=== PATIENT | female | born 1950 | race Caucasian/White ===

== ENCOUNTER → 2017-12-09 | Outpatient (CLI) | payer MEDICARE, OTHER ==
--- NOTE | 2017-12-09 16:10 | RADIOLOGY REPORT (SQ) ---
EXAM DESCRIPTION: U/S THYROID/SFT TISS HD NECK COMPLETED DATE/TIME: 12/09/2017 3:41 pm REASON FOR STUDY: R THYROID NODULE E04.1 NONTOXIC SINGLE THYROID NODULE COMPARISON: None. TECHNIQUE: Dynamic and static carcamo-scale images acquired of the thyroid gland. Selected additional c olor/power Doppler images recorded. All images stored to PACS. LIMITATIONS: None. FINDINGS: RIGHT LOBE: Normal size, 3.5 x 2.5 x 2 cm. Homogeneous echotexture. There is a complex m ass right lower pole thyroid with increased color flow, 2.7 x 2.3 x 2 cm in size. Consider biopsy. LEFT LOBE: Normal size, 3.7 x 1.6 x 1.3 cm. Homogeneous echotexture. Small solid nodule 6 x 3 mm. ISTHMUS: Normal size. Homogeneous echotexture. No cystic or solid masses. OTHER: No other significant finding. IMPRESSION: Complex mass right lower pole thyroid. Ultrasound guided biopsy recommended TECHNICAL DOCUMENTATION: JOB ID: [id number] [employer]- All Rights Reserved Reading location - IP/workstation name: [email or web address]
== END ==
LOC: RAD 14:36
PROVIDERS: ATTEND Otolaryngology
DX: E04.1 Nontoxic single thyroid nodule (principal)
CPT/HCPCS: 76536

== ENCOUNTER 2018-03-03 07:58 | Emergency (ER) | payer MEDICARE, OTHER ==
[2018-03-03] MEDS ORDERED: MORPHINE SULFATE 10 MG/ML INJ IV ONE (08:55)
[2018-03-03] MEDS ORDERED: METOCLOPRAMIDE HCL INJ/PF 10 MG/2 ML SDV IV ONE (08:55)
--- NOTE | 2018-03-03 08:58 | ER Document Report ---
ED General - General Chief Complaint: Upper Abdominal Pain Stated Complaint: STOMACH PAIN Time Seen by Provider: 03/03/18 08:35 Mode of Arrival: Ambulatory Information source: Patient, [facility] Records Notes: 68-year-old female with fibromyalgia, osteoarthritis devious history of pancreatitis presents with complaint of right upper quadrant abdominal pain that started 6 days prior to arrival. Patient describes the pain as intermittent, stabbing with radiation to her back. She states does state that is worse with food. Patient had pancreatitis approximately 3 months ago and was told it was secondary to long-term Diflucan use. She denies any fever, chills, chest pain. She admits to nausea without vomiting, dysuria, loose stool. TRAVEL OUTSIDE OF THE [place] IN LAST 30 DAYS: No - HPI Onset: Last week Quality of pain: Achy Severity: Mild Associated symptoms: Nausea. denies: Chest pain, Vomiting, Shortness of breath Exacerbated by: Movement Relieved by: Denies Similar symptoms previously: Yes Recently seen / treated by doctor: No - Related Data Allergies/Adverse Reactions: aspirin [Aspirin] Adverse Reaction (Severe, Verified 03/03/18 07:58) ABDOMINAL PAIN codeine [Codeine] Adverse Reaction (Severe, Verified 03/03/18 07:58) ABDOMINAL PAIN sulfamethoxazole [From Septra] Adverse Reaction (Severe, Verified 03/03/18 07:58 ) ABDOMINAL PAIN trimethoprim [From Septra] Adverse Reaction (Severe, Verified 03/03/18 07:58) ABDOMINAL PAIN Past Medical History - General Information source: Patient, [facility] Records - Social History Smoking Status: Never Smoker Frequency of alcohol use: None Drug Abuse: None Lives with: Spouse/Significant other Family History: Reviewed & Not Pertinent Patient has suicidal ideation: No Patient has homicidal ideation: No - Past Medical History Cardiac Medical History: Denies: Hx Coronary Artery Disease, Hx Heart Attack, Hx Hypertension Pulmonary Medical History: Denies: Hx Asthma, Hx Bronchitis, Hx COPD, Hx Pneumonia Neurological Medical History: Denies: Hx Cerebrovascular Accident, Hx Seizures Renal/ Medical History: Denies: Hx Peritoneal Dialysis Musculoskeltal Medical History: Denies Hx Arthritis Past Surgical History: Reports: Hx Hysterectomy - Immunizations Hx Diphtheria, Pertussis, Tetanus Vaccination: Yes Review of Systems - Review of Systems Notes: REVIEW OF SYSTEMS: CONSTITUTIONAL : Denies fever, chills, or sweats. Denies recent illness. Denies weight loss, recent hospitalizations. EENT: Denies visual changes, eye pain. Denies nasal or sinus congestion or discharge. Denies sore throat, oral lesions, difficulty swallowing. CARDIOVASCULAR: Denies chest pain. Denies palpitations. Denies lower extremity edema. RESPIRATORY: Denies cough, cold, or chest congestion. Denies shortness of breath, wheezing. GASTROINTESTINAL: Denies abdominal distention. Denies vomiting, Denies blood in vomitus, stools, or per rectum. Denies black, tarry stools. Denies constipation. GENITOURINARY: Denies difficulty urinating, painful urination, frequency, blood in urine, or vaginal discharge. MUSCULOSKELETAL: Denies back or neck pain or stiffness. Denies joint pain or swelling. SKIN: Denies rash, lesions or sores. HEMATOLOGIC : Denies easy bruising or bleeding. LYMPHATIC: Denies swollen glands. NEUROLOGICAL: Denies confusion or altered mental status. Denies passing out or loss of consciousness. Denies dizziness or lightheadedness. Denies headache. Denies weakness or paralysis. Denies problems difficulty with ambulation, slurred speech. Denies sensory loss, numbness, or tingling. Denies seizures. PSYCHIATRIC: Denies anxiety or stress. Denies depression, suicidal ideation, or homicidal ideation. Denies visual or auditory hallucinations. Physical Exam - Vital signs Vitals: Temp Pulse Resp BP Pulse Ox 98.8 F 82 20 143/79 H 99 03/03/18 08:01 03/03/18 08:01 03/03/18 08:01 03/03/18 08:01 03/03/18 08:01 - Notes Notes: PHYSICAL EXAMINATION: GENERAL: Well-appearing, well-nourished and in no acute distress. HEAD: Atraumatic, normocephalic. EYES: Pupils equal round and reactive to light, extraocular movements intact, conjunctiva are normal. ENT: Nares patent, oropharynx clear without exudates. Moist mucous membranes. NECK: Normal range of motion, supple without lymphadenopathy LUNGS: Breath sounds clear to auscultation bilaterally and equal. No wheezes rales or rhonchi. HEART: Regular rate and rhythm without murmurs ABDOMEN: Soft, tender to palpation in the right upper quadrant. Nondistended abdomen. No guarding, no rebound. No masses appreciated. Female : deferred Musculoskeletal: Normal range of motion, no pitting or edema. No cyanosis. NEUROLOGICAL: Cranial nerves grossly intact. Normal speech, normal gait. Normal sensory, motor exams PSYCH: Normal mood, normal affect. SKIN: Warm, Dry, normal turgor, no rashes or lesions noted. Course - Re-evaluation Re-evalutation: 68-year-old female with fibromyalgia, osteoarthritis devious history of pancreatitis presents with complaint of right upper quadrant abdominal pain that started 6 days prior to arrival. Patient describes the pain as intermittent, stabbing with radiation to her back. She states does state that is worse with food. Patient had pancreatitis approximately 3 months ago and was told it was secondary to long-term Diflucan use. She denies any fever, chills, chest pain. She admits to nausea without vomiting, dysuria, loose stool. Patient was seen by myself upon arrival. Vital signs were reviewed. Patient is afebrile, normotensive and not hypoxic. Patient does not appear toxic or dehydrated. They are in no acute distress. Previous medical records and nursing notes reviewed. Significant findings include a urinalysis consistent with urinary tract infection. 03/03/18 11:49 Reevaluation patient reports that her nausea and pain have resolved. She is tolerating fluids without difficulty. 03/03/18 16:04 03/03/18 16:04 Patient was provided Macrobid and Reglan in the department and will be prescribed the same medication for home. Patient provided the opportunity to ask questions, and express concerns. Discharge instructions discussed. Patient is agreeable with discharge home. Return indications explained and discussed with the patient who displays understanding. Patient encouraged to return to the emergency department immediately with any concerns. - Vital Signs Vital signs: Temp Pulse Resp BP Pulse Ox 98.1 F 57 L 14 105/66 98 03/03/18 12:04 03/03/18 12:04 03/03/18 12:04 03/03/18 12:04 03/03/18 12:04 - Laboratory Result Diagrams: 03/03/18 09:23 03/03/18 09:23 Laboratory results interpreted by me: 03/03/18 03/03/18 03/03/18 09:23 09:23 09:53 Seg Neutrophils % 80.7 H Sodium 135.0 L Chloride 96 L BUN 4 L Glucose 145 H Total Protein 8.4 H Ur Leukocyte Esterase MODERATE H Discharge - Discharge Clinical Impression: Abdominal pain Qualifiers: Abdominal location: right upper quadrant Qualified Code(s): R10.11 - Right upper quadrant pain UTI (urinary tract infection) Qualifiers: Urinary tract infection type: acute cystitis Hematuria presence: without hematuria Qualified Code(s): N30.00 - Acute cystitis without hematuria Condition: Good Disposition: HOME, SELF-CARE Instructions: Urinary Tract Infection ([facility]) Prescriptions: Metoclopramide HCl [Reglan 10 mg Tablet] 1 tab PO Q8H PRN #25 tablet PRN Reason: Nitrofurantoin Monohyd/M-Cryst [Macrobid 100 mg Capsule] 1 tab PO BID #14 capsule Referrals: ROBIN LABOY MD [Primary Care Provider] - Follow up in 1 week
[2018-03-03 09:32] LABS: ABSOLUTE LYMPHOCYTES (AUTO) 0.9 10^3/uL (0.5-4.7); ABSOLUTE MONOCYTES (AUTO) 0.3 10^3/uL (0.1-1.4); ABSOLUTE NEUT (AUTO) 4.9 10^3/uL (1.7-8.2); BASOPHILS % (AUTO) 0.3 % (0-2); EOSINOPHILS % (AUTO) 0.3 % (0-6); HEMATOCRIT 40.5 % (36.0-47.0); LYMPHOCYTES % (AUTO) 14.2 % (13-45); MEAN CORPUSCULAR HEMOGLOBIN 32.3 pg (27.0-33.4); MEAN CORPUSCULAR HGB CONC 34.4 g/dL (32.0-36.0); MEAN CORPUSCULAR VOLUME 94 fl (80-97); MONOCYTES % (AUTO) 4.5 % (3-13); PLATELET COUNT 358 10^3/uL (150-450); RED BLOOD COUNT 4.32 10^6/uL (3.72-5.28); RED CELL DISTRIBUTION WIDTH 13.1 % (11.5-14.0); SEGMENTED NEUTROPHILS % (AUTO) 80.7 % (42-78); TOTAL CELLS COUNTED % (AUTO) 100 %
[2018-03-03 09:53] LABS: ALANINE AMINOTRANSFERASE 21 U/L (9-52); ALBUMIN 4.8 g/dL (3.5-5.0); ALKALINE PHOSPHATASE 89 U/L (38-126); ANION GAP 13 (5-19); ASPARTATE AMINO TRANSFERASE 20 U/L (14-36); BILIRUBIN,DIRECT 0.4 mg/dL (0.0-0.4); BILIRUBIN,TOTAL 0.5 mg/dL (0.2-1.3); BLOOD UREA NITROGEN 4 mg/dL (7-20); CALCIUM 9.9 mg/dL (8.4-10.2); CARBON DIOXIDE 26 mmol/L (22-30); CHLORIDE 96 mmol/L (98-107); GLUCOSE 145 mg/dL (75-110); LIPASE 132.5 U/L (23-300); POTASSIUM 4.5 mmol/L (3.6-5.0); TOTAL PROTEIN 8.4 g/dL (6.3-8.2)
[2018-03-03 10:06] LABS: APPEARANCE,URINE SLIGHTLY-CLOUDY; BILIRUBIN,URINE NEGATIVE (NEGATIVE); COLOR,URINE YELLOW; GLUCOSE, URINE NEGATIVE (NEGATIVE); KETONES,URINE NEGATIVE (NEGATIVE); LEUKOCYTE ESTERASE,URINE MODERATE (NEGATIVE); NITRITE,URINE NEGATIVE (NEGATIVE); PROTEIN,URINE NEGATIVE (NEGATIVE); URINE SPECIFIC GRAVITY 1.011; UROBILINOGEN,URINE NEGATIVE mg/dL (<2.0)
[2018-03-03] MEDS ORDERED: NITROFURANTOIN MONOHYD/M-CRYST 100 MG CAPSULE PO ONE (10:34)
[2018-03-03 12:21] VITALS: BP 105/66
== END 2018-03-03 12:19 | disposition home or self-care (01) ==
LOC: ER 07:58
DX: N30.00 Acute cystitis without hematuria (principal); R10.11 Right upper quadrant pain; M79.7 Fibromyalgia; M19.90 Unspecified osteoarthritis, unspecified site; Z88.6 Allergy status to analgesic agent; Z88.8 Allergy status to other drugs, medicaments and biological substances; Z90.710 Acquired absence of both cervix and uterus
CPT/HCPCS: 99284; 96374; 96375; 36415; 87086; 83690; 85025; 80053; 81001; J2765; J2270; A9270; J8499

== ENCOUNTER → 2018-06-13 | Outpatient (CLI) | payer MEDICARE, OTHER ==
--- NOTE | 2018-06-13 13:56 | RADIOLOGY REPORT (SQ) ---
EXAM DESCRIPTION: U/S RETROPERITON (RENAL/AORTA) COMPLETED DATE/TIME: 06/13/2018 11:35 am REASON FOR STUDY: UTI (N39.0) N39.0 URINARY TRACT INFECTION, SITE NOT SPECIFIED COMPARISON: None. TECHNIQUE: Dynamic and static grayscale images acquired of the kidneys and bladder and recorded on P ACS. Additional selected color Doppler and spectral images recorded. LIMITATIONS: None. FINDINGS: RIGHT KIDNEY: Normal size. Normal echogenicity. No solid or suspicious masses. No hydronep hrosis. No calcifications. LEFT KIDNEY: Normal size. Normal echogenicity. No solid or suspicious masses. No hydronephrosis. No calcifications. BLADDER: The bladder is incompletely distended. OTHER FINDINGS: No other significant finding. IMPRESSION: NORMAL RENAL AND BLADDER ULTRASOUND. TECHNICAL DOCUMENTATION: JOB ID: [id number] [employer]- All Rights Reserved Reading location - IP/workstation name: [email or web address]
== END ==
LOC: RAD 11:14
PROVIDERS: ATTEND Urology
DX: N39.0 Urinary tract infection, site not specified (principal)
CPT/HCPCS: 76770

== ENCOUNTER 2018-09-10 02:56 | Emergency (ER) | payer MEDICARE, OTHER ==
[2018-09-10 03:10] VITALS: BP 142/79
[2018-09-10] MEDS ORDERED: ONDANSETRON HCL INJ/PF 4 MG/2 ML SDV IV ONE (03:58)
[2018-09-10] MEDS ORDERED: NORMAL SALINE 1000 ML 1,000 ML IV ONE (03:58)
[2018-09-10] MEDS ORDERED: MORPHINE SULFATE 10 MG/ML INJ IV ONE (03:58)
--- NOTE | 2018-09-10 04:04 | ER Document Report ---
ED GI/ - General Chief Complaint: Rectal Bleeding Stated Complaint: VOMITING Time Seen by Provider: 09/10/18 03:45 Notes: Patient is a 68-year-old female who comes emergency part for chief complaint of abdominal pain, vomiting, bloody stools. She states that at 5 AM she woke up, started having sharp pain in her lateral abdomen, vomited several times, had several episodes of loose stools, she noticed bright red blood in the stool mixed in. She states she has had abdominal pain in the lower abdomen persistently all day. She denies fever or chills. She states that whenever she has tried to eat or drink the pain has become much worse. Past medical history includes hiatal hernia, on Protonix, hysterectomy, hypertension, hyperlipidemia. She denies smoking or alcohol. TRAVEL OUTSIDE OF THE [place] IN LAST 30 DAYS: No - Related Data Allergies/Adverse Reactions: aspirin [Aspirin] Adverse Reaction (Severe, Verified 03/03/18 07:58) ABDOMINAL PAIN codeine [Codeine] Adverse Reaction (Severe, Verified 03/03/18 07:58) ABDOMINAL PAIN sulfamethoxazole [From Septra] Adverse Reaction (Severe, Verified 03/03/18 07:58) ABDOMINAL PAIN trimethoprim [From Septra] Adverse Reaction (Severe, Verified 03/03/18 07:58) ABDOMINAL PAIN Past Medical History - General Information source: Patient - Social History Smoking Status: Never Smoker Frequency of alcohol use: None Drug Abuse: None Lives with: Family Family History: Reviewed & Not Pertinent - Past Medical History Cardiac Medical History: Reports: Hx Hypercholesterolemia, Hx Hypertension Denies: Hx Coronary Artery Disease, Hx Heart Attack Pulmonary Medical History: Denies: Hx Asthma, Hx Bronchitis, Hx COPD, Hx Pneumonia Neurological Medical History: Denies: Hx Cerebrovascular Accident, Hx Seizures Renal/ Medical History: Denies: Hx Peritoneal Dialysis GI Medical History: Reports: Hx Gastroesophageal Reflux Disease Musculoskeletal Medical History: Denies Hx Arthritis Past Surgical History: Reports: Hx Hysterectomy - Immunizations Hx Diphtheria, Pertussis, Tetanus Vaccination: Yes Review of Systems - Review of Systems Constitutional: No symptoms reported EENT: No symptoms reported Cardiovascular: No symptoms reported Respiratory: No symptoms reported Gastrointestinal: See HPI Genitourinary: No symptoms reported Female Genitourinary: No symptoms reported Musculoskeletal: No symptoms reported Skin: No symptoms reported Hematologic/Lymphatic: No symptoms reported Neurological/Psychological: No symptoms reported Physical Exam - Vital signs Vitals: Temp Pulse Resp BP Pulse Ox 98.8 F 91 16 142/79 H 99 09/10/18 02:57 09/10/18 02:57 09/10/18 02:57 09/10/18 02:57 09/10/18 02:57 - Notes Notes: GENERAL: Alert, interacts well. No acute distress. HEAD: Normocephalic, atraumatic. EYES: Pupils equal, round, and reactive to light. Extraocular movements intact. ENT: Oral mucosa moist, tongue midline. Oropharynx unremarkable. Airway patent. Nares patent, no nasal septal hematoma, TM's intact. NECK: Full range of motion. Supple. Trachea midline. LUNGS: Clear to auscultation bilaterally, no wheezes, rales, or rhonchi. No respiratory distress. HEART: Regular rate and rhythm. No murmur ABDOMEN: Tenderness in the left mid to lower quadrant. Patient is not guarding. Right abdomen unremarkable. Upper abdomen unremarkable. No rigidity or distention noted. GENITOURINARY: Deferred RECTAL: Questionable minimal bright red blood, no black stool, no heavy bleeding, no hemorrhoid, no other concerning findings noted. Jaclyn SHIPMAN present during exam. EXTREMITIES: Moves all 4 extremities spontaneously. No edema, normal radial and dorsalis pedis pulses bilaterally. No cyanosis. BACK: no cervical, thoracic, lumbar midline tenderness. No saddle anesthesia, normal distal neurovascular exam. NEUROLOGICAL: Alert and oriented x3. Normal speech. [cranial nerves II through XII grossly intact]. PSYCH: Normal affect, normal mood. SKIN: Warm, dry, normal turgor. No rashes or lesions noted. Course - Re-evaluation Re-evalutation: CBC unremarkable. Chemistry unremarkable. Urinalysis unremarkable. Lactic acid is not elevated. Patient has left lower quadrant pain on evaluation, symptoms very suggestive of colitis versus diverticulitis. Low suspicion of isc hemic colitis based on her appearance, workup, and unremarkable lactic acid. CAT scan was performed, this does show colitis over the left descending colon. This is consistent with patient's presentation. Also shows a possible right ureteral stone, however patient has no hematuria, no right-sided abdominal pain, no right flank pain. I did discuss the possibility of a stone with patient. She has never had them before. Since this is questionable I feel that this is unlikely. I discussed results and plan with patient in detail. Because she has no leukocytosis, fever, unstable vital signs, and her examination is still somewhat benign, will try outpatient therapy first. Patient will be discharged on Augmentin because she has had bad effects of Flagyl in the past including developing pancreatitis once and it was thought to be secondary to this, she requests a different method and after discussion Augmentin was agreed upon. She states she will follow-up very closely with her primary care provider. She was provided with symptom relief. I discussed strict return precautions. Patient and state understanding and agreement. Stable at time of discharge. - Vital Signs Vital signs: Temp Pulse Resp BP Pulse Ox 98.8 F 91 16 142/79 H 99 09/10/18 02:57 09/10/18 02:57 09/10/18 02:57 09/10/18 02:57 09/10/18 02:57 - Laboratory Result Diagrams: 09/10/18 04:09 09/10/18 04:09 Laboratory results interpreted by me: 09/10/18 04:09 Glucose 127 H Discharge - Discharge Clinical Impression: LLQ abdominal pain, Nausea vomiting and diarrhea, Colitis Condition: Stable Disposition: HOME, SELF-CARE Additional Instructions: Your workup indicates colitis. We are treating this with the antibiotic Augmentin. Take as directed. I recommend a clear fluid diet for at least the first 24 hours. Progress to bland diet. Take the pain and nausea medication as prescribed if needed. Follow-up with your provider within the next 3 days. Return if you worsen in any way including fever/chills, severe worsening pain, frequent bloody stools, swelling of the abdomen, uncontrolled vomiting, or any other concerning or worsening symptoms. Prescriptions: Amox Tr/Potassium Clavulanate [Augmentin 875-125 Tablet] 1 tab PO TID 7 Days #21 tablet Morphine Sulfate [Morphine Ir 15 Mg Tablet] 15 mg PO TID PRN #15 tablet PRN Reason: Ondansetron [Zofran Odt 4 mg Tablet] 1 - 2 tab PO Q4H PRN #15 tab.rapdis PRN Reason: For Nausea/Vomiting Referrals: REBECCA RAM [Primary Care Provider] - Follow up as needed
[2018-09-10 04:31] LABS: ABSOLUTE LYMPHOCYTES (AUTO) 1.4 10^3/uL (0.5-4.7); ABSOLUTE MONOCYTES (AUTO) 0.7 10^3/uL (0.1-1.4); ABSOLUTE NEUT (AUTO) 6.7 10^3/uL (1.7-8.2); BASOPHILS % (AUTO) 0.4 % (0-2); EOSINOPHILS % (AUTO) 0.2 % (0-6); HEMATOCRIT 38.1 % (36.0-47.0); HEMOGLOBIN 13.1 g/dL (12.0-15.5); LYMPHOCYTES % (AUTO) 15.5 % (13-45); MEAN CORPUSCULAR HEMOGLOBIN 32.3 pg (27.0-33.4); MEAN CORPUSCULAR HGB CONC 34.5 g/dL (32.0-36.0); MEAN CORPUSCULAR VOLUME 94 fl (80-97); MONOCYTES % (AUTO) 7.5 % (3-13); PLATELET COUNT 310 10^3/uL (150-450); RED BLOOD COUNT 4.07 10^6/uL (3.72-5.28); RED CELL DISTRIBUTION WIDTH 13.2 % (11.5-14.0); SEGMENTED NEUTROPHILS % (AUTO) 76.4 % (42-78); TOTAL CELLS COUNTED % (AUTO) 100 %; WHITE BLOOD COUNT 8.8 10^3/uL (4.0-10.5)
[2018-09-10 04:50] LABS: ALANINE AMINOTRANSFERASE 15 U/L (9-52); ALKALINE PHOSPHATASE 94 U/L (38-126); ANION GAP 6 (5-19); ASPARTATE AMINO TRANSFERASE 20 U/L (14-36); BILIRUBIN,DIRECT 0.2 mg/dL (0.0-0.4); BILIRUBIN,TOTAL 0.6 mg/dL (0.2-1.3); BLOOD UREA NITROGEN 8 mg/dL (7-20); CALCIUM 9.3 mg/dL (8.4-10.2); CARBON DIOXIDE 27 mmol/L (22-30); CHLORIDE 104 mmol/L (98-107); GLUCOSE 127 mg/dL (75-110); SODIUM 137.2 mmol/L (137-145)
[2018-09-10 04:51] LABS: APPEARANCE,URINE CLEAR; BILIRUBIN,URINE NEGATIVE (NEGATIVE); COLOR,URINE YELLOW; GLUCOSE, URINE NEGATIVE (NEGATIVE); KETONES,URINE NEGATIVE (NEGATIVE); LEUKOCYTE ESTERASE,URINE NEGATIVE (NEGATIVE); NITRITE,URINE NEGATIVE (NEGATIVE); PROTEIN,URINE NEGATIVE (NEGATIVE); URINE SPECIFIC GRAVITY 1.013; UROBILINOGEN,URINE NEGATIVE mg/dL (<2.0)
--- NOTE | 2018-09-10 05:30 | RADIOLOGY REPORT (SQ) ---
CLINICAL HISTORY: sharp LLQ pain, vomiting, bloody stool COMPARISON: None. TECHNIQUE: CT ABDOMEN PELVIS WITH IV CONTRAST on 09/10/2018 3:59 AM [employer] This exam was performed according to our departmental dose-optimization program, which includes automated exposure control, adjustment of the mA and/or kV according to patient size and/or use of iterative reconstruction technique. FINDINGS: Lower lungs are clear. Abdomen: The liver is normal in appearance. There is no biliary dilatation. Gallbladder is normal in appearance. The pancreas and spleen are normal in appearance. There is mild fullness of the right renal collecting system. Left kidney and both adrenal glands are unremarkable. Abdominal aorta is normal in course and caliber without aneurysm. There is no free air. There is no retroperitoneal adenopathy. Pelvis: There is mild to moderate thickening of essentially the entire descending colon. There is mild surrounding inflammation. Urinary bladder is unremarkable. There is no free fluid. Appendix is normal. There is a 3 mm calcification in the area of the lower third of the right ureter. Skeleton: There are no acute osseous findings. No suspicious bony lesions. IMPRESSION: Moderate long segment area of infectious or inflammatory colitis involving the descending colon. Questionable 3 mm calculus in the lower third of the right ureter
[2018-09-10] MEDS ORDERED: HYDROCODONE/ACETAMINOPHEN 5-325 MG (6 TAB/ER DISP) PO PRN (05:51)
[2018-09-10] MEDS ORDERED: AMOXICILLIN TRIHYDRATE 500 MG CAPSULE PO ONE (05:51)
[2018-09-10] MEDS ORDERED: AMOXICILLIN TR/POT CLAVULANATE 500-125 MG TAB PO ONE (05:51)
[2018-09-10] MEDS ORDERED: ONDANSETRON ODT 4 MG TAB (6 TAB/ER DISP) PO PRN (05:52)
== END 2018-09-10 06:35 | disposition home or self-care (01) ==
LOC: ER 02:56
DX: K52.9 Noninfective gastroenteritis and colitis, unspecified (principal); R10.32 Left lower quadrant pain; R11.2 Nausea with vomiting, unspecified; K21.9 Gastro-esophageal reflux disease without esophagitis; I10 Essential (primary) hypertension; Z79.899 Other long term (current) drug therapy
CPT/HCPCS: 99284; 96361; 96374; 96375; 36415; 83605; 83690; 85025; 80053; 81001; 74177; A9270 ×4; J2270; J2405; J7030

== ENCOUNTER 2018-11-26 06:52 | Emergency (ER) | payer MEDICARE, OTHER ==
--- NOTE | 2018-11-26 08:13 | ER Document Report ---
ED General - General Chief Complaint: Abdominal Pain Stated Complaint: ABDOMINAL PAIN Time Seen by Provider: 11/26/18 08:13 Primary Care Provider: ADAM SINGER MD [ACTIVE STAFF] - Follow up in 3-5 days REBECCA RAM [NO LOCAL MD] - Follow up in 3-5 days Mode of Arrival: Ambulatory Information source: Patient TRAVEL OUTSIDE OF THE [place] IN LAST 30 DAYS: No - HPI Notes: 68-year-old female presents the ED by private car for complaints of abdominal pain, bloody stool and vomiting that started last night. Patient had an episode of colitis back in August 2018 was seen at [facility], she did show to have colitis on CT scan. Patient did follow-up with her primary care provider she never had a colonoscopy since then due to her PCM her to get a colonoscopy in the spring 2018 however she did have been in his copy which showed she does have mild acid reflux, has been taking Prilosec daily. Denies any new travel, new foods, new medications. Patient denies any recent trauma. No bleeding disorders, patient states she has had 3 loose stools. Denies any history of IBS. Patient states this episode feels very similar to her previous episode of colitis. history of hypertension and hyperlipidemia did have a hysterectomy. Patient does not take a baby aspirin daily. Denies fevers, chills, chest pain,palpitations, shortness of breath, dyspnea, nausea, vhematuria,blurred vision, double vision, loss of vision, speech changes, LH, dizziness, syncope, headaches, neck pain, weakness, bowel or bladder dysfunction, saddle anesthesia, numbness or tingling in bilateral upper or lower extremities equally, muscle paralysis, weakness in bilateral upper or lower extremities equally or rash. - Related Data Allergies/Adverse Reactions: aspirin [Aspirin] Adverse Reaction (Severe, Verified 11/26/18 07:14) ABDOMINAL PAIN codeine [Codeine] Adverse Reaction (Severe, Verified 11/26/18 07:14) ABDOMINAL PAIN sulfamethoxazole [From Septra] Adverse Reaction (Severe, Verified 11/26/18 07:14) ABDOMINAL PAIN trimethoprim [From Septra] Adverse Reaction (Severe, Verified 11/26/18 07:14) ABDOMINAL PAIN Past Medical History - General Information source: Patient - Social History Smoking Status: Unknown if Ever Smoked Family History: Reviewed & Not Pertinent Patient has suicidal ideation: No Patient has homicidal ideation: No - Past Medical History Cardiac Medical History: Reports: Hx Hypercholesterolemia, Hx Hypertension Denies: Hx Coronary Artery Disease, Hx Heart Attack Pulmonary Medical History: Denies: Hx Asthma, Hx Bronchitis, Hx COPD, Hx Pneumonia Neurological Medical History: Denies: Hx Cerebrovascular Accident, Hx Seizures Renal/ Medical History: Denies: Hx Peritoneal Dialysis GI Medical History: Reports: Hx Gastroesophageal Reflux Disease Musculoskeletal Medical History: Denies Hx Arthritis Past Surgical History: Reports: Hx Hysterectomy - Immunizations Hx Diphtheria, Pertussis, Tetanus Vaccination: Yes Review of Systems - Review of Systems Constitutional: No symptoms reported EENT: No symptoms reported Cardiovascular: No symptoms reported Respiratory: No symptoms reported Gastrointestinal: See HPI Genitourinary: No symptoms reported Female Genitourinary: No symptoms reported Musculoskeletal: No symptoms reported Skin: No symptoms reported Hematologic/Lymphatic: No symptoms reported Neurological/Psychological: No symptoms reported Physical Exam - Vital signs Vitals: Temp Pulse Resp BP Pulse Ox 98.5 F 85 22 H 125/71 98 11/26/18 07:14 11/26/18 07:14 11/26/18 07:14 11/26/18 07:14 11/26/18 07:14 - Notes Notes: PHYSICAL EXAMINATION: GENERAL: Well-appearing, well-nourished and in no acute distress. HEAD: Atraumatic, normocephalic. EYES: Pupils equal round and reactive to light, extraocular movements intact, conjunctiva are normal. ENT: Nares patent, oropharynx clear without exudates. Moist mucous membranes. NECK: Normal range of motion, supple without lymphadenopathy LUNGS: Breath sounds clear to auscultation bilaterally and equal. No wheezes rales or rhonchi. HEART: Regular rate and rhythm without murmurs ABDOMEN: Hyperactive bowel sounds soft, generalized abdominal tenderness nontender, nondistended abdomen. No guarding, no rebound. No masses appreciated. Guaiac positive Female : deferred Musculoskeletal: Normal range of motion, no pitting or edema. No cyanosis. NEUROLOGICAL: Cranial nerves grossly intact. Normal speech, normal gait. Normal sensory, motor exams PSYCH: Normal mood, normal affect. SKIN: Warm, Dry, normal turgor, no rashes or lesions noted. Course - Re-evaluation Re-evalutation: 11/26/18 12:33 68-year-old female afebrile vitals stable no distress presents for evaluation of abdominal pain, bloody stools. CBC and CMP unremarkable. Urinalysis does show some ketones, otherwise normal. Low suspicion of ischemic colitis based on her appearance and laboratory studies. CT abdomen pelvis with IV and oral contrast does show healing of the descending colon. Guaiac was positive however patient is vomiting noman blood. No noted hemorrhoids normal sphincter tone, no hemorrhoids or palpable masses on rectal exam. Discussed with patient that she does need to follow-up with a banquet manager for a colonoscopy, referral given. Advised to take antibiotics as directed. Discussed with patient that in previous note states that patient had a reaction to Flagyl, she states she realized that when she told the provider the last time this was she actually has a reaction to Diflucan, also known as fluconazole, and she missed does smoke. States she does not have a reaction to Flagyl. Discussed with her that she needs to follow a bland diet, take antibiotics as directed. With primary care provider within 24-[address], drink or operate machinery while taking the medication as it can cause sedation and impairment of cognitive function. After performing a Medical Screening Examination, I estimate there is LOW risk for ACUTE APPENDICITIS, BOWEL OBSTRUCTION, ACUTE CHOLECYSTITIS, PERFORATED DIVERTICULITIS, INCARCERATED HERNIA, PANCREATITIS, PELVIC INFLAMMATORY DISEASE, PERFORATED ULCER, ECTOPIC , or TUBO-OVARIAN ABSCESS, thus I consider the discharge disposition reasonable. Also, there is no evidence or peritonitis, sepsis, or toxicity. I have reevaluated this patient multiple times and no significant life threatening changes are noted. The patient and I have discussed the diagnosis and risks, and we agree with discharging home with close follow-up with the understanding that symptoms and presentations can change. We also discussed returning to the Emergency Department immediately if new or worsening symptoms occur. We have discussed the symptoms which are most concerning (e.g., bloody stool, fever, changing or worsening pain, vomiting) that necessitate immediate return. - Vital Signs Vital signs: Temp Pulse Resp BP Pulse Ox 98.4 F 85 20 134/78 H 95 11/26/18 14:24 11/26/18 07:14 11/26/18 14:24 11/26/18 14:24 11/26/18 14:24 - Laboratory Result Diagrams: 11/26/18 07:59 11/26/18 07:59 Laboratory results interpreted by me: 11/26/18 11/26/18 07:59 09:30 Glucose 115 H Urine Ketones TRACE H Discharge - Discharge Clinical Impression: Colitis Condition: Stable Disposition: HOME, SELF-CARE Instructions: Colitis, Nonspecific ([facility]), Nausea or Vomiting, Nonspecific ([facility]) Additional Instructions: Colitis, Nonspecific Colitis is an inflammatory disease of the large intestine which affects the lining of the bowel. The cause is uncertain, though it is often caused by an infection. In some cases, the symptoms resolve and can return again in the future. Colitis is characterized by abdominal pain, often nausea and vomiting, and either diarrhea or difficulty with bowel movements. Sometimes blood will be present in the bowel movements. Fever is often present as well. Milder cases of colitis can be managed as an outpatient with medications for nausea and vomiting and pain, oral fluid therapy, and perhaps antibiotics, if a bacterial origin is suspected. Antidiarrhea medicine should usually be avoided in colitis. If you have increasing abdominal pain, repeated vomiting, fever, rectal bleeding, or worsening diarrhea, you should return for re-evaluation. take antibiotics as directed, probiotic 2 hours prior to hours after taking antibiotic. Follow-up with banquet manager for colonoscopy within 1 week, follow-up with PCP within 24-48 hours. Return to ED if you experience any fevers, worsening abdominal pain, weakness, lethargy, etc. Return immediately for any new or worsening symptoms. Follow up with primary care provider, call tomorrow to make followup appointment. Prescriptions: Ciprofloxacin HCl [Cipro 500 mg Tablet] 500 mg PO BID #20 tablet Metronidazole [Flagyl 500 mg Tablet] 500 mg PO BID #20 tablet Ondansetron [Zofran Odt 4 mg Tablet] 1 - 2 tab PO Q4H PRN #15 tab.rapdis PRN Reason: For Nausea/Vomiting Forms: Return to Work Referrals: ADAM SINGER MD [ACTIVE STAFF] - Follow up in 3-5 days REBECCA RAM [NO LOCAL MD] - Follow up in 3-5 days
[2018-11-26] MEDS ORDERED: FENTANYL CITRATE INJ/PF 100 MCG/2 ML AMPUL IV ONE ×2 (08:36→12:29)
[2018-11-26] MEDS ORDERED: NORMAL SALINE 1000 ML 1,000 ML IV ONE (08:36)
[2018-11-26] MEDS ORDERED: ONDANSETRON HCL INJ/PF 4 MG/2 ML SDV IV ONE (08:36)
[2018-11-26] MEDS ORDERED: PANTOPRAZOLE SODIUM 40 MG VIAL IV ONE (08:36)
[2018-11-26 08:44] LABS: ABSOLUTE BASOPHILS # (AUTO) 0.1 10^3/uL (0.0-0.2); ABSOLUTE EOSINOPHILS # (AUTO) 0.1 10^3/uL (0.0-0.6); ABSOLUTE LYMPHOCYTES (AUTO) 1.5 10^3/uL (0.5-4.7); ABSOLUTE MONOCYTES (AUTO) 0.5 10^3/uL (0.1-1.4); ABSOLUTE NEUT (AUTO) 4.4 10^3/uL (1.7-8.2); BASOPHILS % (AUTO) 0.8 % (0-2); EOSINOPHILS % (AUTO) 1.1 % (0-6); HEMATOCRIT 38.2 % (36.0-47.0); HEMOGLOBIN 13.3 g/dL (12.0-15.5); LYMPHOCYTES % (AUTO) 23.6 % (13-45); MEAN CORPUSCULAR HEMOGLOBIN 32.1 pg (27.0-33.4); MEAN CORPUSCULAR HGB CONC 34.7 g/dL (32.0-36.0); MEAN CORPUSCULAR VOLUME 92 fl (80-97); MONOCYTES % (AUTO) 7.2 % (3-13); PLATELET COUNT 308 10^3/uL (150-450); RED BLOOD COUNT 4.14 10^6/uL (3.72-5.28); RED CELL DISTRIBUTION WIDTH 13.5 % (11.5-14.0); SEGMENTED NEUTROPHILS % (AUTO) 67.3 % (42-78); TOTAL CELLS COUNTED % (AUTO) 100 %; WHITE BLOOD COUNT 6.5 10^3/uL (4.0-10.5)
[2018-11-26 08:55] LABS: PARTIAL THROMBOPLASTIN TIME 30.4 SEC (23.5-35.8); PROTHROMBIN TIME 12.6 SEC (11.4-15.4)
[2018-11-26 08:57] LABS: ALANINE AMINOTRANSFERASE 26 U/L (9-52); ALBUMIN 3.9 g/dL (3.5-5.0); ALKALINE PHOSPHATASE 90 U/L (38-126); ANION GAP 6 (5-19); ASPARTATE AMINO TRANSFERASE 19 U/L (14-36); BILIRUBIN,DIRECT 0.2 mg/dL (0.0-0.4); BILIRUBIN,TOTAL 0.4 mg/dL (0.2-1.3); BLOOD UREA NITROGEN 9 mg/dL (7-20); CALCIUM 9.7 mg/dL (8.4-10.2); CARBON DIOXIDE 25 mmol/L (22-30); CHLORIDE 106 mmol/L (98-107); GLUCOSE 115 mg/dL (75-110); LIPASE 123.6 U/L (23-300); SODIUM 137.1 mmol/L (137-145); TOTAL PROTEIN 7.1 g/dL (6.3-8.2)
[2018-11-26 08:58] LABS: C-REACTIVE PROTEIN < 5.0 mg/L (<10.0)
[2018-11-26 10:17] LABS: APPEARANCE,URINE CLEAR; BILIRUBIN,URINE NEGATIVE (NEGATIVE); COLOR,URINE YELLOW; GLUCOSE, URINE NEGATIVE (NEGATIVE); KETONES,URINE TRACE mg/dL (NEGATIVE); LEUKOCYTE ESTERASE,URINE NEGATIVE (NEGATIVE); NITRITE,URINE NEGATIVE (NEGATIVE); PROTEIN,URINE NEGATIVE (NEGATIVE); URINE SPECIFIC GRAVITY 1.009; UROBILINOGEN,URINE NEGATIVE mg/dL (<2.0)
[2018-11-26] MEDS ORDERED: NORMAL SALINE 1000 ML 1,000 ML IV PRN (12:04)
[2018-11-26] MEDS ORDERED: PROCHLORPERAZINE EDISYLATE INJ 10 MG/2 ML VIAL IM ONE (12:29)
--- NOTE | 2018-11-26 12:29 | RADIOLOGY REPORT (SQ) ---
EXAM DESCRIPTION: CT ABD/PELVIS WITH IV ORAL COMPLETED DATE/TIME: 11/26/2018 12:04 pm REASON FOR STUDY: RLQ/LLQ pain w/ vomiting/bloody stool COMPARISON: 09/10/2018. TECHNIQUE: CT scan of the abdomen and pelvis performed with intravenous and oral contrast using jay tristin scanning technique with dynamic intravenous contrast injection. Images reviewed with lung, soft t issue, and bone windows. Reconstructed coronal and sagittal MPR images reviewed. Delayed images for e valuation of the urinary system also acquired. All images stored on PACS. All CT scanners at this facility use dose modulation, iterative reconstruction, and/or weight based d osing when appropriate to reduce radiation dose to as low as reasonably achievable (ALARA). [facility]: Dose Right [facility]: CareDose [facility]: Dose Right [facility]: Teradose 4D [facility]: [employer] CONTRAST TYPE AND DOSE: contrast/concentration: Isovue 350.00 mg/ml; Total Contrast Delivered: 78.0 ml; Total Saline Delivered: 67.0 ml RENAL FUNCTION: BUN 9 creatinine 0.73. RADIATION DOSE: CT Rad equipment meets quality standard of care and radiation dose reduction techniq ues were employed. CTDIvol: 7.9 - 10.8 mGy. DLP: 951 mGy-cm.. LIMITATIONS: None. FINDINGS: LOWER CHEST: No significant findings. No nodules or infiltrates. LIVER: Normal size. No masses. No dilated ducts. SPLEEN: Normal size. No focal lesions. PANCREAS: No masses. No significant calcifications. No adjacent inflammation or peripancreatic fluid collections. Pancreatic duct not dilated. GALLBLADDER: No identified stones by CT criteria. No inflammatory changes to suggest cholecystitis. ADRENAL GLANDS: No significant masses or asymmetry. RIGHT KIDNEY AND URETER: No solid masses. No significant calcification. No hydronephrosis or hydroure ter. LEFT KIDNEY AND URETER: No solid masses. No significant calcification. No hydronephrosis or hydrouret er. AORTA AND VESSELS: No aneurysm. No dissection. Renal arteries, SMA, celiac without stenosis. RETROPERITONEUM: No retroperitoneal adenopathy, hemorrhage or masses. BOWEL AND PERITONEAL CAVITY: No obstruction. No visualized masses. No free fluid. Mild bowel wall th ickening of the descending colon. APPENDIX: Normal. PELVIS: No significant masses. Normal bladder. No free fluid. ABDOMINAL WALL: No masses. No hernias. BONES: No significant or acute findings. OTHER: No other significant finding. IMPRESSION: 1. MILD BOWEL WALL THICKENING OF THE DESCENDING COLON. SIMILAR APPEARANCE TO THE PRIOR STUDY. THIS COULD BE ARTIFACT DUE TO LACK OF CONTRAST DISTENTION ALTHOUGH MILD COLITIS IS ANOTHER POSSIBILITY. 2. NO OTHER SIGNIFICANT OR ACUTE FINDINGS IN THE ABDOMEN OR PELVIS. TECHNICAL DOCUMENTATION: JOB ID: [id number] Quality ID # [id number]: Final reports with documentation of one or more dose reduction techniques (e.g., Au tomated exposure control, adjustment of the mA and/or kV according to patient size, use of iterative reconstruction technique) 2010 [employer]- All Rights Reserved Reading location - IP/workstation name: [email or web address]
[2018-11-26] MEDS ORDERED: HYDROCODONE/ACETAMINOPHEN 5-325 MG (6 TAB/ER DISP) PO PRN (14:29)
[2018-11-26 14:36] VITALS: BP 134/78
== END 2018-11-26 14:44 | disposition home or self-care (01) ==
LOC: ER 06:52
DX: K52.9 Noninfective gastroenteritis and colitis, unspecified (principal); R10.9 Unspecified abdominal pain; K92.1 Melena; K92.0 Hematemesis; I10 Essential (primary) hypertension; K21.9 Gastro-esophageal reflux disease without esophagitis; Z79.899 Other long term (current) drug therapy
CPT/HCPCS: 99284; 96372; 96361; 96374; 96375; 36415; 83690; 85025; 85610; 85730; 86140; 80053; 81001; 74177; J3010; C9113; J0780; J2405; J7030; A9270; S0164

== ENCOUNTER → 2019-08-02 | Outpatient (CLI) | payer MEDICARE, OTHER ==
--- NOTE | 2019-08-02 13:10 | RADIOLOGY REPORT (SQ) ---
EXAM DESCRIPTION: MRI PELVIS WITHOUT COMPLETED DATE/TIME: 08/02/2019 10:45 am REASON FOR STUDY: ABDOMINAL PAIN R10.2 PELVIC AND PERINEAL PAIN COMPARISON: CT abdomen pelvis 11/26/2018, 09/10/2018 Pelvic ultrasound 09/25/2012 TECHNIQUE: Multiplanar multisequence imaging performed without contrast including axial, sagittal an d coronal T2, axial T1, sagittal inversion recovery. LIMITATIONS: None. FINDINGS: BLADDER AND URETHRA: No focal bladder wall thickening or nodularity. Smooth mucosa. The urethra has smooth contour with no focal asymmetry. No urethrocele is identified. PELVIC SOFT TISSUES: Normal. No masses. UTERUS: Surgically absent RIGHT OVARY: Surgically absent LEFT OVARY: Surgically absent FREE FLUID: None. PELVIC SKELETAL STRUCTURES: No abnormal marrow signal. EXTRA PELVIS SOFT TISSUES: No masses. OTHER: Urinary bladder is decompressed, mucosa not well seen. IMPRESSION: Post total hysterectomy. No urethrocele is identified Bladder decompressed, not well seen TECHNICAL DOCUMENTATION: JOB ID: [id number] [employer]- All Rights Reserved Reading location - IP/workstation name: [email or web address]
== END ==
LOC: RAD 10:01
PROVIDERS: ATTEND Urology
DX: R10.2 Pelvic and perineal pain (principal)
CPT/HCPCS: 72195

== ENCOUNTER 2019-11-20 19:38 | Inpatient (IN) | payer MEDICARE, OTHER ==
[2019-11-20] MEDS ORDERED: ADENOSINE INJ/PF 6 MG/2 ML SDV IV ONE ×3 (20:00→20:16)
[2019-11-20 20:09] LABS: ABSOLUTE EOSINOPHILS # (AUTO) 0.1 10^3/uL (0.0-0.6); ABSOLUTE LYMPHOCYTES (AUTO) 3.2 10^3/uL (0.5-4.7); ABSOLUTE MONOCYTES (AUTO) 0.6 10^3/uL (0.1-1.4); ABSOLUTE NEUT (AUTO) 5.3 10^3/uL (1.7-8.2); BASOPHILS % (AUTO) 0.5 % (0-2); EOSINOPHILS % (AUTO) 1.4 % (0-6); HEMATOCRIT 43.6 % (36.0-47.0); HEMOGLOBIN 14.9 g/dL (12.0-15.5); LYMPHOCYTES % (AUTO) 34.4 % (13-45); MEAN CORPUSCULAR HEMOGLOBIN 32.2 pg (27.0-33.4); MEAN CORPUSCULAR HGB CONC 34.1 g/dL (32.0-36.0); MEAN CORPUSCULAR VOLUME 95 fl (80-97); MONOCYTES % (AUTO) 6.9 % (3-13); PLATELET COUNT 363 10^3/uL (150-450); RED BLOOD COUNT 4.61 10^6/uL (3.72-5.28); RED CELL DISTRIBUTION WIDTH 14.1 % (11.5-14.0); SEGMENTED NEUTROPHILS % (AUTO) 56.8 % (42-78); TOTAL CELLS COUNTED % (AUTO) 100 %; WHITE BLOOD COUNT 9.3 10^3/uL (4.0-10.5)
[2019-11-20] MEDS ORDERED: DILTIAZEM HCL INJ 25 MG/5 ML VIAL IV ONE (20:14)
[2019-11-20 20:25] LABS: ALBUMIN 4.6 g/dL (3.5-5.0); ALKALINE PHOSPHATASE 79 U/L (38-126); ANION GAP 13 (5-19); ASPARTATE AMINO TRANSFERASE 24 U/L (14-36); BILIRUBIN,DIRECT 0.2 mg/dL (0.0-0.4); BILIRUBIN,TOTAL 0.5 mg/dL (0.2-1.3); BLOOD UREA NITROGEN 7 mg/dL (7-20); CALCIUM 10.1 mg/dL (8.4-10.2); CARBON DIOXIDE 25 mmol/L (22-30); CHLORIDE 98 mmol/L (98-107); CREATINE KINASE 59 U/L (30-135); GLUCOSE 137 mg/dL (75-110); POTASSIUM 4.1 mmol/L (3.6-5.0)
[2019-11-20] MEDS: DILTIAZEM HCL/D5W 125 MG/125 ML RTUINJ IV ONE ×4 (20:32→20:48)
[2019-11-20] MEDS ORDERED: DILTIAZEM HCL/D5W 125 MG/125 ML RTUINJ IV PRN ×2 (20:35→20:40)
[2019-11-20 20:38] LABS: CREATINE KINASE MB 1.11 ng/mL (<4.55); TROPONIN I 0.014 ng/mL
[2019-11-20 20:45] LABS: INTERNATIONAL RATION (INR) 0.95; PROTHROMBIN TIME 12.7 SEC (11.4-15.4)
[2019-11-20] MEDS ORDERED: LABETALOL HCL INJ 20 MG/4 ML DISP.SYRIN IV ONE (20:50)
--- NOTE | 2019-11-20 20:50 | ER Document Report ---
ED General - General Chief Complaint: Palpitations Stated Complaint: CHEST PAIN,RAPID HEART BEAT,DIZZINESS Time Seen by Provider: 11/20/19 19:57 Primary Care Provider: REBECCA RAM [NO LOCAL MD] - Follow up as needed Mode of Arrival: Ambulatory Information source: Patient Notes: 69-year-old female arrives by POV with her Jermaine with chief complaint of having onset of fast heart rate since 0800 this morning. Patient was doing normal activities when this occurred. Patient has a history of MVP and on atenolol per Dr. Weston and had surgery to her right back and neck from a cervical rib resection in 1979. Patient lives in [facility]. She has never had any similar symptoms in the past. She has a history of some stomach pain when she takes aspirin and sulfa drugs and codeine. She does not have allergic reactions when she takes these medicines. Patient has a history of ischemic colitis in the past. But no surgeries. I spoke with Dr. Perez after the patient was given adenosine 6 then 12 mg and then Cardizem 20 mg bolus with a 5 mg/h drip . TRAVEL OUTSIDE OF THE [place] IN LAST 30 DAYS: No - HPI Onset: This morning Onset/Duration: Sudden Quality of pain: No pain Severity: None Pain Level: Denies Associated symptoms: Chest pain, Weakness Exacerbated by: Denies Relieved by: Denies Similar symptoms previously: Yes Recently seen / treated by doctor: No - Related Data Allergies/Adverse Reactions: aspirin [Aspirin] Adverse Reaction (Severe, Verified 11/26/18 07:14) ABDOMINAL PAIN codeine [Codeine] Adverse Reaction (Severe, Verified 11/26/18 07:14) ABDOMINAL PAIN sulfamethoxazole [From Septra] Adverse Reaction (Severe, Verified 11/26/18 07:14) ABDOMINAL PAIN trimethoprim [From Septra] Adverse Reaction (Severe, Verified 11/26/18 07:14) ABDOMINAL PAIN Home Medications: atenolol Past Medical History - Social History Smoking Status: Unknown if Ever Smoked Cigarette use (# per day): No Chew tobacco use (# tins/day): No Smoking Education Provided: No Frequency of alcohol use: None Drug Abuse: None Lives with: Family - Jermaine Family History: Reviewed & Not Pertinent Patient has suicidal ideation: No Patient has homicidal ideation: No - Past Medical History Cardiac Medical History: Reports: Hx Hypercholesterolemia, Hx Hypertension Denies: Hx Coronary Artery Disease, Hx Heart Attack Pulmonary Medical History: Denies: Hx Asthma, Hx Bronchitis, Hx COPD, Hx Pneumonia Neurological Medical History: Denies: Hx Cerebrovascular Accident, Hx Seizures Renal/ Medical History: Denies: Hx Peritoneal Dialysis GI Medical History: Reports: Hx Gastroesophageal Reflux Disease Musculoskeletal Medical History: Denies Hx Arthritis Past Surgical History: Reports: Hx Hysterectomy - Immunizations Hx Diphtheria, Pertussis, Tetanus Vaccination: Yes Review of Systems - Review of Systems Constitutional: See HPI, Malaise, Weakness EENT: No symptoms reported Cardiovascular: See HPI, Chest pain, Palpitations Respiratory: No symptoms reported Gastrointestinal: No symptoms reported Genitourinary: No symptoms reported Female Genitourinary: No symptoms reported Musculoskeletal: No symptoms reported Skin: No symptoms reported Hematologic/Lymphatic: No symptoms reported Neurological/Psychological: No symptoms reported Physical Exam - Vital signs Vitals: Resp Pulse Ox 21 H 100 11/20/19 19:51 11/20/19 19:51 Interpretation: Hypertensive, Tachycardic - General General appearance: Alert - HEENT Head: Normocephalic Eyes: Normal Conjunctiva: Normal Cornea: Normal Extraocular movements intact: Yes Eyelashes: Normal Pupils: PERRL Pharynx: Normal Neck: Normal - Respiratory Respiratory status: No respiratory distress Chest status: Nontender Breath sounds: Normal Chest palpation: Normal - Cardiovascular Rhythm: Tachycardia Heart sounds: Normal auscultation Murmur: No Friction rub: No Krunal's crunch: No - Abdominal Inspection: Normal Distension: No distension Bowel sounds: Normal Tenderness: Nontender Organomegaly: No organomegaly - Back Back: Normal - Extremities General upper extremity: Normal inspection General lower extremity: Normal inspection - Neurological Neuro grossly intact: Yes Cognition: Normal Orientation: AAOx4 [place] Coma Scale Eye Opening: Spontaneous [place] Coma Scale Verbal: Oriented [place] Coma Scale Motor: Obeys Commands [place] Coma Scale Total: 15 Speech: Normal Cranial nerves: Normal Cerebellar coordination: Normal Motor strength normal: LUE, RUE, LLE, RLE - Psychological Associated symptoms: Normal affect - Skin Skin Temperature: Warm Skin Moisture: Dry Course - Vital Signs Vital signs: Temp Pulse Resp BP Pulse Ox 98.5 F 25 H 153/107 H 99 11/20/19 19:52 11/20/19 19:52 11/20/19 19:52 11/20/19 19:52 - Laboratory Result Diagrams: 11/20/19 19:53 11/20/19 19:53 Laboratory results interpreted by me: 11/20/19 11/20/19 11/20/19 19:53 19:53 19:53 RDW 14.1 H Sodium 135.8 L Glucose 137 H NT-Pro-B Natriuret Pep 1290 H - Diagnostic Test Radiology reviewed: Reports reviewed - EKG Interpretation by Me Rate: Tachycardia Rhythm: SVT Critical Care Note - Critical Care Note Total time excluding time spent on procedures (mins): 90 Comments: I discussed this case with [facility] and he will admit patient I also spoke with Dr. Perez prior to this time and he advised admitting the patient and he will see the patient tomorrow morning. Discharge - Discharge Clinical Impression: Tachycardia Condition: Good Disposition: ADMITTED INPATIENT Unit Admitted: ICU Additional Instructions: Transfer patient to ICU Referrals: REBECCA RAM [NO LOCAL MD] - Follow up as needed
--- NOTE | 2019-11-20 20:59 | RADIOLOGY REPORT (SQ) ---
EXAM DESCRIPTION: X-RAY CHEST- One View CLINICAL HISTORY: Chest pain COMPARISON: None available TECHNIQUE: Single view of the chest. FINDINGS: There are overlying EKG leads and other objects. Lungs appear hyperexpanded with flattening of the diaphragms. Nodular appearing density with potential peripheral calcification projects over the right upper lobe measuring up to 1 cm in size. There are no discrete pneumothoraces or pleural effusions. The pulmonary vascularity is normal. The cardiomediastinal silhouette is normal in size. No suspicious lytic or blastic osseous lesions are identified. IMPRESSION: 1. Hyperexpanded appearance is nonspecific but can be seen in the setting of COPD. 2. Nodular appearing lesion projects over the right upper lobe. Findings are nonspecific and attention on follow-up is recommended.
[2019-11-20] MEDS: NORMAL SALINE 1000 ML 1,000 ML IV PRN ×2 (21:04→22:10)
[2019-11-20 21:32] LABS: APPEARANCE,URINE CLEAR; BILIRUBIN,URINE NEGATIVE (NEGATIVE); COLOR,URINE STRAW; GLUCOSE, URINE NEGATIVE (NEGATIVE); KETONES,URINE 20 mg/dL (NEGATIVE); LEUKOCYTE ESTERASE,URINE NEGATIVE (NEGATIVE); NITRITE,URINE NEGATIVE (NEGATIVE); PROTEIN,URINE NEGATIVE (NEGATIVE); URINE SPECIFIC GRAVITY 1.004; UROBILINOGEN,URINE NEGATIVE mg/dL (<2.0)
[2019-11-20] MEDS ORDERED: ACETAMINOPHEN 325 MG TABLET PO PRN (21:54)
[2019-11-20] MEDS ORDERED: MAG HYDROX/AL HYDROX/SIMETH SUSP 30 ML UDCUP PO PRN (21:54)
[2019-11-20] MEDS: METOPROLOL TARTRATE PF/INJ 5 MG/5 ML SDV IV PRN (22:10)
[2019-11-20] MEDS: HEPARIN SOD (PORCINE) 5,000 UNIT/ML 1 ML VIAL SUBCUT SCH (22:10)
[2019-11-20] MEDS: DILTIAZEM HCL/D5W 125 MG/125 ML RTUINJ IV PRN (22:25)
[2019-11-21] MEDS ORDERED: LORAZEPAM INJ 2 MG/1 ML VIAL ONE (00:05)
[2019-11-21] MEDS ORDERED: LORAZEPAM INJ 2 MG/1 ML VIAL IV ONE (00:45)
[2019-11-21] MEDS ORDERED: METOPROLOL TARTRATE PF/INJ 5 MG/5 ML SDV IV ONE (00:45)
--- NOTE | 2019-11-21 03:36 | PDOC H&P ---
History of Present Illness Admission Date/PCP: 11/20/19 21:25 Patient complains of: Palpitations History of Present Illness: TERRANCE CINTRON is a 69 year old female with a past medical history of mitral valve prolapse and intermittent tachycardia on atenolol. She presents with 12 hours of palpitations prompting evaluation in the emergency department. She is found to have sinus tachycardia in the 1 40-1 80 range, after adenosine 6 followed by 12 she was placed on IV Cardizem. And referred to the hospitalist for admission. She adamantly denies recent change in medications, excessive caffeine, energy drinks, [id number] medications or abrupt medication withdrawal. She does admit to recent onset of panic attack first being 2 weeks ago prior to dental procedure. She admits to panic this morning concern for repeat dental procedure and ongoing public health concerns. She also has a history of thyroid nodules requiring drainage 2 years ago. After receiving continuous IV Cardizem followed by IV labetalol and Lopressor without significant improvement she receives IV Ativan greatly improving her heart rate into the 90s. She denies chest pain nausea vomiting, heat or cold intolerance. Past Medical History Cardiac Medical History: Reports: Hyperlipidema, Hypertension Denies: Coronary Artery Disease, Myocardial Infarction Pulmonary Medical History: Denies: Asthma, Bronchitis, Chronic Obstructive Pulmonary Disease (COPD), Pneumonia Neurological Medical History: Denies: Seizures Endocrine Medical History: Reports: Hyperthyroidism GI Medical History: Reports: Gastroesophageal Reflux Disease Musculoskeltal Medical History: Denies: Arthritis Psychiatric Medical History: Reports: Depression, General Anxiety Disorder Hematology: Denies: Anemia Past Surgical History Past Surgical History: Reports: Hysterectomy Social History Information Source: Patient Lives with: Family - Jermaine Smoking Status: Former Smoker Cigarettes Packs Per Day: 0.5 Number of Years Smokin Last Time Smoked: 1977 Frequency of Alcohol Use: None Hx Recreational Drug Use: No Drugs: None Hx Prescription Drug Abuse: No - Advance Directive Resuscitation Status: Full Code Family History Family History: Hypertension, Thyroid Disfunction Parental Family History Reviewed: Yes Children Family History Reviewed: Yes Sibling(s) Family History Reviewed.: Yes Medication/Allergy Home Medications: Atenolol [Tenormin 25 mg Tablet] 25 mg PO DAILY 10/30/12 Butalb/Acetaminophen/Caffeine [Fioricet (50-325-40 mg) Tablet] 1 tab PO BID 10/30/12 Zolpidem Tartrate [Ambien 10 mg Tablet] 10 mg PO PRN PRN 10/30/12 Ondansetron [Zofran Odt 4 mg Tablet] 1 - 2 tab PO Q4H PRN #15 tab.rapdis 09/10/18 Pravastatin Sodium 20 mg PO 11/21/19 Allergies/Adverse Reactions: aspirin [Aspirin] Adverse Reaction (Severe, Verified 11/26/18 07:14) ABDOMINAL PAIN codeine [Codeine] Adverse Reaction (Severe, Verified 11/26/18 07:14) ABDOMINAL PAIN sulfamethoxazole [From Septra] Adverse Reaction (Severe, Verified 11/26/18 07:14) ABDOMINAL PAIN trimethoprim [From Aprra] Adverse Reaction (Severe, Verified 11/26/18 07:14) ABDOMINAL PAIN Review of Systems Constitutional: ABSENT: chills, fever(s), headache(s), weight gain, weight loss Eyes: ABSENT: visual disturbances Ears: ABSENT: hearing changes Cardiovascular: ABSENT: chest pain, dyspnea on exertion, edema, orthropnea, palpitations Respiratory: ABSENT: cough, hemoptysis Gastrointestinal: ABSENT: abdominal pain, constipation, diarrhea, hematemesis, hematochezia, nausea, vomiting Genitourinary: ABSENT: dysuria, hematuria Musculoskeletal: ABSENT: joint swelling Integumentary: ABSENT: rash, wounds Neurological: ABSENT: abnormal gait, abnormal speech, confusion, dizziness, focal weakness, syncope Psychiatric: ABSENT: anxiety, depression, homidical ideation, suicidal ideation Endocrine: ABSENT: cold intolerance, heat intolerance, polydipsia, polyuria Hematologic/Lymphatic: ABSENT: easy bleeding, easy bruising Physical Exam Vital Signs: Temp Pulse Resp BP Pulse Ox 98 F 118 H 18 115/71 99 11/20/19 23:56 11/20/19 23:56 11/20/19 23:56 11/21/19 02:00 11/20/19 23:56 Intake & Output 11/19/19 11/20/19 11/21/19 11:59 11:59 11:59 Intake Total 2047 Balance 2047 Weight 60.5 kg General appearance: PRESENT: no acute distress, well-developed, well-nourished Head exam: PRESENT: atraumatic, normocephalic Eye exam: PRESENT: conjunctiva pink, EOMI, PERRLA. ABSENT: scleral icterus Ear exam: PRESENT: normal external ear exam Mouth exam: PRESENT: moist, tongue midline Neck exam: ABSENT: carotid bruit, JVD, lymphadenopathy, thyromegaly Respiratory exam: PRESENT: clear to auscultation berta. ABSENT: rales, rhonchi, wheezes Cardiovascular exam: PRESENT: irregular rhythm, tachycardia. ABSENT: diastolic murmur, rubs, systolic murmur Pulses: PRESENT: normal dorsalis pedis pul Vascular exam: PRESENT: normal capillary refill GI/Abdominal exam: PRESENT: normal bowel sounds, soft. ABSENT: distended, guarding, mass, organolmegaly, rebound, tenderness Rectal exam: PRESENT: deferred Extremities exam: PRESENT: full ROM. ABSENT: calf tenderness, clubbing, pedal edema Neurological exam: PRESENT: alert, awake, oriented to person, oriented to place, oriented to time, oriented to situation, CN II-XII grossly intact. ABSENT: motor sensory deficit Psychiatric exam: PRESENT: appropriate affect, normal mood. ABSENT: homicidal ideation, suicidal ideation Skin exam: PRESENT: dry, intact, warm. ABSENT: cyanosis, rash Results Laboratory Results: 11/20/19 19:53 11/20/19 19:53 11/20/19 11/20/19 11/20/19 19:53 19:53 19:53 WBC 9.3 RBC 4.61 Hgb 14.9 Hct 43.6 MCV 95 MCH 32.2 MCHC 34.1 RDW 14.1 H Plt Count 363 Seg Neutrophils % 56.8 Sodium 135.8 L Potassium 4.1 Chloride 98 Carbon Dioxide 25 Anion Gap 13 BUN 7 Creatinine 0.72 Est GFR ( Amer) > 60 Glucose 137 H Calcium 10.1 Magnesium 2.1 Total Bilirubin 0.5 AST 24 Alkaline Phosphatase 79 Total Protein 8.0 Albumin 4.6 TSH Urine Color Urine Appearance Urine pH Ur Specific [place] Urine Protein Urine Glucose (UA) Urine Ketones Urine Blood Urine Nitrite Ur Leukocyte Esterase Urine WBC (Auto) 11/20/19 11/20/19 19:53 21:19 WBC RBC Hgb Hct MCV MCH MCHC RDW Plt Count Seg Neutrophils % Sodium Potassium Chloride Carbon Dioxide Anion Gap BUN Creatinine Est GFR ( Amer) Glucose Calcium Magnesium Total Bilirubin AST Alkaline Phosphatase Total Protein Albumin TSH 0.53 Urine Color STRAW Urine Appearance CLEAR Urine pH 7.0 Ur Specific [place] 1.004 Urine Protein NEGATIVE Urine Glucose (UA) NEGATIVE Urine Ketones 20 H Urine Blood NEGATIVE Urine Nitrite NEGATIVE Ur Leukocyte Esterase NEGATIVE Urine WBC (Auto) 1 11/20/19 11/20/19 19:53 19:53 Creatine Kinase 59 CK-MB (CK-2) 1.11 Troponin I 0.014 NT-Pro-B Natriuret Pep 1290 H Impressions: Chest X-Ray 11/20/19 19:59 IMPRESSION: 1. Hyperexpanded appearance is nonspecific but can be seen in the setting of COPD. 2. Nodular appearing lesion projects over the right upper lobe. Findings are nonspecific and attention on follow-up is recommended. Assessment and Plan - Diagnosis (1) A-fib Qualifiers: Atrial fibrillation type: paroxysmal Qualified Code(s): I48.0 - Paroxysmal atrial fibrillation Is this a current diagnosis for this admission?: Yes Plan: IMCU, IV Cardizem, beta-jim as tolerated. Possibly secondary to hypothyroidism, full dose anticoagulation, follow-up cardiology consult and TSH (2) Hyperthyroidism Is this a current diagnosis for this admission?: Yes Plan: Unclear history, follow-up TSH and free T4 (3) Panic Is this a current diagnosis for this admission?: Yes Plan: Second episode in 2 weeks, possibly secondary to hyperthyroidism, symptomatic management, beta-jim ordered. - Time Time Spent with patient: 25-34 minutes - Inpatient Certification Medical Necessity: Need Close Monitoring Due to Risk of Patient Decompensation
[2019-11-21] MEDS ORDERED: INFLUENZA QUAD (6MOS+) 2019-20 VAC 0.5 ML SYR IM ONE (03:52)
[2019-11-21 04:14] LABS: FREE T3 5.24 pg/mL (2.77-5.27); FREE T4 (FREE THYROXINE) 1.08 ng/dL (0.78-2.19)
[2019-11-21] MEDS: DILTIAZEM HCL/D5W 125 MG/125 ML RTUINJ IV PRN ×3 (04:14→22:47)
[2019-11-21] MEDS: HEPARIN SOD (PORCINE) 5,000 UNIT/ML 1 ML VIAL SUBCUT SCH (06:18)
[2019-11-21] MEDS: DILTIAZEM HCL 60 MG TABLET PO SCH ×4 (08:56→23:11)
[2019-11-21] MEDS ORDERED: ATENOLOL 50 MG TABLET PO SCH (10:00)
[2019-11-21] MEDS ORDERED: ASPIRIN 81 MG TABLET, ENT COATED PO SCH (10:00)
[2019-11-21] MEDS: ONDANSETRON HCL INJ/PF 4 MG/2 ML SDV IV PRN ×2 (10:28→18:10)
[2019-11-21] MEDS: BUTALB/ACETAMINOPHEN/CAFFEINE 1 TAB EACH PO PRN ×2 (10:28→18:10)
--- NOTE | 2019-11-21 11:26 | EKG REPORT ---
SEVERITY:- ABNORMAL ECG - ATRIAL FIBRILLATION WITH RAPID V-RATE INFERIOR INFARCT, OLD REPOLARIZATION ABNORMALITY, PROB RATE RELATED : Confirmed by: Fred Chadwick MD 21-Nov-2019 11:26:17
--- NOTE | 2019-11-21 11:26 | EKG REPORT ---
SEVERITY:- ABNORMAL ECG - ATRIAL FIBRILLATION, RAPID V-RATE 83-176 MULTIPLE VENTRICULAR PREMATURE COMPLEXES LEFT AXIS DEVIATION PROBABLE LVH WITH SECONDARY REPOL ABNRM : Confirmed by: Fred Chadwick MD 21-Nov-2019 11:25:55
--- NOTE | 2019-11-21 11:26 | EKG REPORT ---
SEVERITY:- ABNORMAL ECG - ATRIAL FIBRILLATION PVC LEFT AXIS DEVIATION : Confirmed by: Fred Chadwick MD 21-Nov-2019 11:25:05
--- NOTE | 2019-11-21 12:57 | PDOC CONSULTATION ---
Consultation Consult Date: 11/21/19 Attending physician:: RUPERTO AKHTAR Provider Consulted: SHAINA EVANS Consult reason:: Atrial fibrillation History of Present Illness Admission Date/PCP: 11/20/19 21:25 Patient complains of: Palpitations History of Present Illness: TERRANCE CINTRON is a 69 year old female with ? MVP by Echo( remote) with intermittent "tachycardia". She presented with palpitartions to ED yesterday. Likely atrial fibrillation with rapid ventricular response; received IV Adenosine ( no significant effect) and then required IV Di ltiazem with better rate control. No report of CHF, DM , Stroke or TIA or systemic hypertension. No previous diagnosis of atrial fibrillation. Denies tobacco. Retired RN. No major surgeries. Past Medical History Cardiac Medical History: Reports: Hyperlipidema, Hypertension Denies: Coronary Artery Disease, Myocardial Infarction Pulmonary Medical History: Denies: Asthma, Bronchitis, Chronic Obstructive Pulmonary Disease (COPD), Pneumonia Neurological Medical History: Denies: Seizures Endocrine Medical History: Reports: Hyperthyroidism GI Medical History: Reports: Gastroesophageal Reflux Disease Musculoskeltal Medical History: Denies: Arthritis Psychiatric Medical History: Reports: Depression, General Anxiety Disorder Hematology: Denies: Anemia Past Surgical History Past Surgical History: Reports: Hysterectomy Social History Lives with: Family - Jermaine Smoking Status: Former Smoker Cigarettes Packs Per Day: 0.5 Number of Years Smokin Last Time Smoked: 1977 Frequency of Alcohol Use: None Hx Recreational Drug Use: No Drugs: None Hx Prescription Drug Abuse: No - Advance Directive Resuscitation Status: Full Code Family History Family History: Hypertension, Thyroid Disfunction Parental Family History Reviewed: Yes - No familial illnesses Children Family History Reviewed: NA Sibling(s) Family History Reviewed.: NA Medication/Allergy Home Medications: Atenolol [Tenormin 25 mg Tablet] 25 mg PO QPM 10/30/12 Butalb/Acetaminophen/Caffeine [Fioricet (50-325-40 mg) Tablet] 1 tab PO DAILYP PRN 10/30/12 Zolpidem Tartrate [Ambien 10 mg Tablet] 10 mg PO HSP PRN 10/30/12 Cetirizine HCl [Zyrtec 10 mg Tablet] 10 mg PO DAILYP PRN 11/21/19 Ondansetron [Zofran Odt 4 mg Tablet] 4 mg PO Q4HP PRN 11/21/19 Pravastatin Sodium 20 mg PO QPM 11/21/19 Rabeprazole Sodium [Aciphex] 20 mg PO QPMP PRN 11/21/19 Allergies/Adverse Reactions: aspirin [Aspirin] Adverse Reaction (Severe, Verified 11/26/18 07:14) ABDOMINAL PAIN codeine [Codeine] Adverse Reaction (Severe, Verified 11/26/18 07:14) ABDOMINAL PAIN sulfamethoxazole [From Septra] Adverse Reaction (Severe, Verified 11/26/18 07:14) ABDOMINAL PAIN trimethoprim [From Septra] Adverse Reaction (Severe, Verified 11/26/18 07:14) ABDOMINAL PAIN Review of Systems Constitutional: PRESENT: as per HPI Ears: PRESENT: as per HPI Nose, Mouth, and Throat: PRESENT: as per HPI Cardiovascular: PRESENT: palpitations Respiratory: ABSENT: as per HPI, cough, dyspnea, hemoptysis, sputum, other Gastrointestinal: ABSENT: as per HPI, abdominal pain, bloating, coffee ground emesis, constipation, diarrhea, dysphagia, heartburn, hematemesis, hematochezia, melena, nausea, vomiting, other Neurological: ABSENT: as per HPI, abnormal gait, abnormal movements, abnormal speech, confusion, convulsions, dizziness, focal weakness, frequent falls, lack of coordination, memory loss, numbness, paresthesias, restless legs, syncope, tingling, tremor(s), vertigo, weakness, other Physical Exam Vital Signs: Temp Pulse Resp BP Pulse Ox 98.6 F 91 16 126/67 H 98 11/21/19 11:57 11/21/19 11:57 11/21/19 11:57 11/21/19 12:00 11/21/19 11:57 Intake & Output 11/20/19 11/21/19 11/22/19 06:59 06:59 06:59 Intake Total 2557 68 Output Total 150 Balance 2407 68 Weight 63.7 kg General appearance: PRESENT: no acute distress, cooperative, well-developed, well-nourished Head exam: PRESENT: atraumatic, normocephalic Eye exam: PRESENT: conjunctiva pink, EOMI Mouth exam: PRESENT: moist Respiratory exam: PRESENT: clear to auscultation berta, symmetrical, unlabored Cardiovascular exam: PRESENT: irregular rhythm, RRR, +S1, +S2, tachycardia Pulses: PRESENT: normal radial pulses Rectal exam: PRESENT: deferred Musculoskeletal exam: PRESENT: normal inspection Neurological exam: PRESENT: alert, awake, oriented to person, oriented to place, oriented to time, oriented to situation Psychiatric exam: PRESENT: appropriate affect Skin exam: PRESENT: dry, intact Results Laboratory Results: 11/20/19 19:53 11/20/19 19:53 11/20/19 11/20/19 11/20/19 19:53 19:53 19:53 WBC 9.3 RBC 4.61 Hgb 14.9 Hct 43.6 MCV 95 MCH 32.2 MCHC 34.1 RDW 14.1 H Plt Count 363 Seg Neutrophils % 56.8 Sodium 135.8 L Potassium 4.1 Chloride 98 Carbon Dioxide 25 Anion Gap 13 BUN 7 Creatinine 0.72 Est GFR ( Amer) > 60 Glucose 137 H Calcium 10.1 Magnesium 2.1 Total Bilirubin 0.5 AST 24 Alkaline Phosphatase 79 Total Protein 8.0 Albumin 4.6 TSH Free T4 Free T3 pg/mL Urine Color Urine Appearance Urine pH Ur Specific [place] Urine Protein Urine Glucose (UA) Urine Ketones Urine Blood Urine Nitrite Ur Leukocyte Esterase Urine WBC (Auto) 11/20/19 11/20/19 11/20/19 19:53 19:53 21:19 WBC RBC Hgb Hct MCV MCH MCHC RDW Plt Count Seg Neutrophils % Sodium Potassium Chloride Carbon Dioxide Anion Gap BUN Creatinine Est GFR ( Amer) Glucose Calcium Magnesium Total Bilirubin AST Alkaline Phosphatase Total Protein Albumin TSH 0.53 Free T4 1.08 Free T3 pg/mL 5.24 Urine Color STRAW Urine Appearance CLEAR Urine pH 7.0 Ur Specific [place] 1.004 Urine Protein NEGATIVE Urine Glucose (UA) NEGATIVE Urine Ketones 20 H Urine Blood NEGATIVE Urine Nitrite NEGATIVE Ur Leukocyte Esterase NEGATIVE Urine WBC (Auto) 1 11/20/19 11/20/19 19:53 19:53 Creatine Kinase 59 CK-MB (CK-2) 1.11 Troponin I 0.014 NT-Pro-B Natriuret Pep 1290 H EKG Comments: EKG independently reviewed by me Also Telemetry strips Show Atrial fibrillation with RVR Impressions: Chest X-Ray 11/20/19 19:59 IMPRESSION: 1. Hyperexpanded appearance is nonspecific but can be seen in the setting of COPD. 2. Nodular appearing lesion projects over the right upper lobe. Findings are nonspecific and attention on follow-up is recommended. Status: Image reviewed by me - No cardiogemagaly No pulmonary edema Assessment & Plan - Diagnosis (1) A-fib Qualifiers: Atrial fibrillation type: paroxysmal Qualified Code(s): I48.0 - Paroxysmal atrial fibrillation Is this a current diagnosis for this admission?: Yes Plan: New onset atrial fibrillation with rapid ventricular response Continue diltiazem gtt with transition to oral Diltiazem with possible addition of beta-jim as well Directly acting oral anticoagulation to be considered-female, age > 65 years Rate control measures for now. Can pursue out patient [facility] if necessary( given limited anesthesia/ personnel support)
[2019-11-21] MEDS ORDERED: (PENDING PHARMACY ID) (Rabeprazole Sodium [Aciphex] 20 MG) PO PRN (13:24)
[2019-11-21] MEDS ORDERED: CETIRIZINE 10 MG TABLET PO PRN (13:24)
[2019-11-21] MEDS ORDERED: PANTOPRAZOLE SODIUM 20 MG TABLET.DR PO PRN (13:29)
--- NOTE | 2019-11-21 13:35 | XCELERA REPORT ---
[address] [address] Transthoracic Echocardiogram Report Name: TERRANCE CINTRON Age: 69 yrs Gender: Female : 1950 Patient Status: Inpatient Patient Location: [address] [place], [place] [address] Study Date: 11/21/2019 07:12 AM History: Atrial fibrillation Height: 67 in Weight: 140 lb BSA: 1.7 m2 Procedure: A complete two-dimensional transthoracic echocardiogram was performed (2D, M-mode, spectral and color flow Doppler). The study was technically adequate with some images being suboptimal in quality. Reason For Study: new onset afib (waqar lew) Previous Evaluation: No previous studies were available. History: Atrial fibrillation. Ordering Physician: RUPERTO AKHTAR Performed By: Carolin Blevins Interpretation Summary The Ejection Fraction estimate is 60-65% Left ventricular systolic function is normal. The right ventricle is normal in size and function. There is a trace amount of mitral regurgitation There is no aortic valve stenosis There is a mild amount of tricuspid regurgitation There is no pericardial effusion. MMode/2D Measurements & Calculations RVDd: 2.2 cm LVIDd: 3.7 cm FS: 28.5 % Ao root diam: 2.8 cm IVSd: 1.5 cm LVIDs: 2.6 cm EDV(Teich): Ao root area: LVPWd: 0.92 cm 56.8 ml 6.3 cm2 ESV(Teich): 25.1 ml EF(Teich): 55.9 % EDV(MOD-sp4): SV(MOD-sp4): 32.5 ml 21.3 ml ESV(MOD-sp4): 11.3 ml EF(MOD-sp4): 65.4 % Doppler Measurements & Calculations MV E max rasheed: MV dec slope: Ao V2 max: LV V1 max P.9 cm/sec 185.5 cm/sec 3.6 mmHg 370.2 cm/sec2 Ao max PG: LV V1 max: MV dec time: 0.23 sec13.8 mmHg 94.5 cm/sec PA V2 max: TR max rasheed: 95.6 cm/sec 263.1 cm/sec PA max P.7 mmHg TR max P.7 mmHg Left Ventricle The left ventricle is grossly normal size. There is normal left ventricular wall thickness. The Ejection Fraction estimate is 60-65%. Left ventricular systolic function is normal. No regional wall motion abnormalities noted. Right Ventricle The right ventricle is normal in size and function. Atria The right atrium is normal. The left atrial size is normal. Mitral Valve The mitral valve leaflets appear normal. There is no evidence of stenosis, fluttering, or prolapse. There is no evidence of mitral valve prolapse. There is a trace amount of mitral regurgitation. Aortic Valve The aortic valve opens well. The aortic valve is trileaflet. The aortic valve is normal in structure and function. There is no aortic valve stenosis. No aortic regurgitation is present. Tricuspid Valve The tricuspid valve is normal in structure and function. There is a mild amount of tricuspid regurgitation. Doppler findings do not suggest pulmonary hypertension. Pulmonic Valve The pulmonic valve is normal in structure and function. There is a trace amount of pulmonic regurgitation. Effusions There is no pericardial effusion. : RUPERTO AKHTAR Anil
--- NOTE | 2019-11-21 13:39 | PDOC PROGRESS REPORT ---
Subjective Progress Note for:: 11/21/19 Subjective:: Patient complains of palpitations and low nausea this morning. She says her nausea is chronic and has been going on since she had an ischemic colitis a few years ago. Also endorses some headache. States that she often gets very anxious but has not been on any medication for it. Says she worries a lot about different things and he gets anxious and worked up. Reason For Visit: TACHYCARDIA Physical Exam Vital Signs: Temp Pulse Resp BP Pulse Ox 98.6 F 91 16 126/67 H 98 11/21/19 11:57 11/21/19 11:57 11/21/19 11:57 11/21/19 12:00 11/21/19 11:57 Intake & Output 11/20/19 11/21/19 11/22/19 06:59 06:59 06:59 Intake Total 2557 68 Output Total 150 Balance 2407 68 Weight 63.7 kg General appearance: PRESENT: no acute distress, cooperative Neck exam: ABSENT: JVD Respiratory exam: PRESENT: clear to auscultation berta, symmetrical, unlabored. ABSENT: tachypnea, wheezes Cardiovascular exam: PRESENT: irregular rhythm, +S1, +S2, tachycardia GI/Abdominal exam: PRESENT: soft. ABSENT: rebound, rigid, tenderness Neurological exam: PRESENT: alert, awake Results Laboratory Results: 11/20/19 19:53 11/20/19 19:53 11/20/19 11/20/19 11/20/19 19:53 19:53 19:53 WBC 9.3 RBC 4.61 Hgb 14.9 Hct 43.6 MCV 95 MCH 32.2 MCHC 34.1 RDW 14.1 H Plt Count 363 Seg Neutrophils % 56.8 Sodium 135.8 L Potassium 4.1 Chloride 98 Carbon Dioxide 25 Anion Gap 13 BUN 7 Creatinine 0.72 Est GFR ( Amer) > 60 Glucose 137 H Calcium 10.1 Magnesium 2.1 Total Bilirubin 0.5 AST 24 Alkaline Phosphatase 79 Total Protein 8.0 Albumin 4.6 TSH Free T4 Free T3 pg/mL Urine Color Urine Appearance Urine pH Ur Specific [place] Urine Protein Urine Glucose (UA) Urine Ketones Urine Blood Urine Nitrite Ur Leukocyte Esterase Urine WBC (Auto) 11/20/19 11/20/19 11/20/19 19:53 19:53 21:19 WBC RBC Hgb Hct MCV MCH MCHC RDW Plt Count Seg Neutrophils % Sodium Potassium Chloride Carbon Dioxide Anion Gap BUN Creatinine Est GFR ( Amer) Glucose Calcium Magnesium Total Bilirubin AST Alkaline Phosphatase Total Protein Albumin TSH 0.53 Free T4 1.08 Free T3 pg/mL 5.24 Urine Color STRAW Urine Appearance CLEAR Urine pH 7.0 Ur Specific [place] 1.004 Urine Protein NEGATIVE Urine Glucose (UA) NEGATIVE Urine Ketones 20 H Urine Blood NEGATIVE Urine Nitrite NEGATIVE Ur Leukocyte Esterase NEGATIVE Urine WBC (Auto) 1 11/20/19 11/20/19 19:53 19:53 Creatine Kinase 59 CK-MB (CK-2) 1.11 Troponin I 0.014 NT-Pro-B Natriuret Pep 1290 H Impressions: Chest X-Ray 11/20/19 19:59 IMPRESSION: 1. Hyperexpanded appearance is nonspecific but can be seen in the setting of COPD. 2. Nodular appearing lesion projects over the right upper lobe. Findings are nonspecific and attention on follow-up is recommended. Assessment and Plan - Diagnosis (1) Paroxysmal atrial fibrillation with rapid ventricular response Is this a current diagnosis for this admission?: Yes Plan: Still in RVR on diltiazem drip. Rate increased this morning. Discontinue atenolol. Restart diltiazem p.o. 60 mg every 6 hours and Lopressor 25 mg. Continue to monitor vital signs and monitor telemetry. TSH and free T4 within normal limits- not in hyperthyroid state. Chadsvasc 2 --> Eliquis started Echocardiogram Cardiology following (2) Anxiety Is this a current diagnosis for this admission?: Yes Plan: Starting on buspirone. (3) GERD (gastroesophageal reflux disease) Qualifiers: Esophagitis presence: esophagitis presence not specified Qualified Code(s): K21.9 - Gastro-esophageal reflux disease without esophagitis Is this a current diagnosis for this admission?: Yes Plan: Protonix while inpatient. - Time Time Spent with patient: 15-24 minutes
[2019-11-21] MEDS: METOPROLOL TARTRATE 25 MG TABLET PO SCH ×2 (14:06→22:40)
[2019-11-21] MEDS: BUSPIRONE HCL 10 MG TABLET PO SCH ×4 (14:07→22:40)
[2019-11-21] MEDS: APIXABAN 5 MG TABLET PO SCH (18:05)
[2019-11-21] MEDS: METOPROLOL TARTRATE PF/INJ 5 MG/5 ML SDV IV PRN (20:39)
[2019-11-21] MEDS: ZOLPIDEM TARTRATE 5 MG TABLET PO PRN (22:40)
[2019-11-22] MEDS: ONDANSETRON HCL INJ/PF 4 MG/2 ML SDV IV PRN (03:33)
[2019-11-22] MEDS: METOPROLOL TARTRATE 25 MG TABLET PO SCH (06:58)
[2019-11-22] MEDS: DILTIAZEM HCL 60 MG TABLET PO SCH ×3 (06:58→17:42)
[2019-11-22] MEDS: BUSPIRONE HCL 10 MG TABLET PO SCH ×3 (06:59→22:43)
[2019-11-22] MEDS: DILTIAZEM HCL/D5W 125 MG/125 ML RTUINJ IV PRN ×3 (07:07→22:59)
[2019-11-22] MEDS ORDERED: METOPROLOL TARTRATE 25 MG TABLET PO ONE (08:15)
[2019-11-22] MEDS: APIXABAN 5 MG TABLET PO SCH (09:40)
--- NOTE | 2019-11-22 10:21 | PDOC PROGRESS REPORT ---
Subjective Progress Note for:: 11/22/19 Subjective:: Patient anxious today about persistent palpitations. Also states that her nausea had not fully resolved with the Zofran. Of note patient does have chronic nausea since she was diagnosed with ischemic colitis and has been taking Zofran at home an as-needed basis usually before she eats. Patient denies any chest pain. Patient also anxious about not having a bowel movement in a day and a half. Reassured patient. Reason For Visit: TACHYCARDIA Physical Exam Vital Signs: Temp Pulse Resp BP Pulse Ox 99.1 F 112 H 16 111/61 96 11/22/19 03:23 11/22/19 07:00 11/21/19 18:05 11/22/19 08:00 11/22/19 03:23 Intake & Output 11/21/19 11/22/19 11/23/19 06:59 06:59 06:59 Intake Total 2557 1657 125 Output Total 150 1400 Balance 2407 257 125 Weight 63.7 kg 70.2 kg General appearance: PRESENT: no acute distress, cooperative Neck exam: ABSENT: JVD Respiratory exam: PRESENT: clear to auscultation berta, unlabored. ABSENT: tachypnea, wheezes Cardiovascular exam: PRESENT: irregular rhythm, +S1, +S2, tachycardia GI/Abdominal exam: PRESENT: normal bowel sounds, soft. ABSENT: rebound, rigid, tenderness Neurological exam: PRESENT: alert, awake, oriented to person, oriented to place, oriented to time, oriented to situation Results Laboratory Results: 11/20/19 19:53 11/20/19 19:53 11/20/19 11/20/19 19:53 19:53 Creatine Kinase 59 CK-MB (CK-2) 1.11 Troponin I 0.014 NT-Pro-B Natriuret Pep 1290 H Impressions: Chest X-Ray 11/20/19 19:59 IMPRESSION: 1. Hyperexpanded appearance is nonspecific but can be seen in the setting of COPD. 2. Nodular appearing lesion projects over the right upper lobe. Findings are nonspecific and attention on follow-up is recommended. Assessment and Plan - Diagnosis (1) Paroxysmal atrial fibrillation with rapid ventricular response Is this a current diagnosis for this admission?: Yes Plan: Still in RVR on diltiazem drip but persistent RVR. Continue diltiazem 60 mg p.o. every 6 hours. Lopressor dose increased to 50 mg p.o. every 8 hours Continue to monitor vital signs and monitor telemetry. TSH and free T4 within normal limits- not in hyperthyroid state. Chadsvasc 2 --> Eliquis started but held in anticipation of patient's dental surgery on Tuesday next week Echocardiogram is unremarkable with normal ejection fraction, no evidence of mitral valve prolapse. Cardiology following (2) Anxiety Is this a current diagnosis for this admission?: Yes Plan: Buspirone. Reassurance. (3) GERD (gastroesophageal reflux disease) Qualifiers: Esophagitis presence: esophagitis presence not specified Qualified Code(s): K21.9 - Gastro-esophageal reflux disease without esophagitis Is this a current diagnosis for this admission?: Yes Plan: Protonix while inpatient. (4) Nausea Is this a current diagnosis for this admission?: Yes Plan: Patient has chronic nausea since she had procedure for ischemic colitis a while back. Takes Zofran at home. Will give Zofran IV and Reglan as needed. - Time Time Spent with patient: 15-24 minutes
[2019-11-22] MEDS: METOCLOPRAMIDE HCL 10 MG TABLET PO PRN ×2 (10:48→17:44)
[2019-11-22] MEDS: METOPROLOL TARTRATE 50 MG TABLET PO SCH ×2 (13:07→22:42)
[2019-11-22] MEDS ORDERED: METOPROLOL TARTRATE 25 MG TABLET PO SCH (14:00)
--- NOTE | 2019-11-22 16:20 | PDOC PROGRESS REPORT ---
Subjective Progress Note for:: 11/22/19 Subjective:: Examined. Resting in bed. No complaints of chest pain. Endorses palpitations especially when getting up to go to the bathroom. Continues to be in atrial fibrillation. Ventricular rate is better controlled with average heart rate between 90 to 110 bpm. Reason For Visit: AFIB WITH RVR Physical Exam Vital Signs: Temp Pulse Resp BP Pulse Ox 98.8 F 89 16 95/68 L 98 11/22/19 12:01 11/22/19 15:00 11/22/19 12:01 11/22/19 15:00 11/22/19 12:01 Intake & Output 11/21/19 11/22/19 11/23/19 06:59 06:59 06:59 Intake Total 2557 1657 250 Output Total 150 1400 Balance 2407 257 250 Weight 63.7 kg 70.2 kg General appearance: PRESENT: no acute distress, cooperative, well-developed Head exam: PRESENT: atraumatic, normocephalic Eye exam: PRESENT: conjunctiva pink, EOMI Mouth exam: PRESENT: moist Respiratory exam: PRESENT: clear to auscultation berta, symmetrical, unlabored Cardiovascular exam: PRESENT: irregular rhythm, +S1, +S2 GI/Abdominal exam: PRESENT: soft Rectal exam: PRESENT: deferred Neurological exam: PRESENT: alert, awake, oriented to person, oriented to place, oriented to time, oriented to situation - They likely do not get get into fights even before he was started. Baby is very is [already Psychiatric exam: PRESENT: appropriate affect Skin exam: PRESENT: dry, intact, normal color Results Laboratory Results: 11/20/19 19:53 11/20/19 19:53 11/20/19 11/20/19 19:53 19:53 Creatine Kinase 59 CK-MB (CK-2) 1.11 Troponin I 0.014 NT-Pro-B Natriuret Pep 1290 H EKG Comments: Telemetry overnight showed atrial fibrillation. Presently ventricular rate is between 90 to 110 bpm. Impressions: Chest X-Ray 11/20/19 19:59 IMPRESSION: 1. Hyperexpanded appearance is nonspecific but can be seen in the setting of COPD. 2. Nodular appearing lesion projects over the right upper lobe. Findings are nonspecific and attention on follow-up is recommended. Assessment & Plan - Diagnosis (1) A-fib Qualifiers: Atrial fibrillation type: paroxysmal Qualified Code(s): I48.0 - Paroxysmal atrial fibrillation Is this a current diagnosis for this admission?: Yes Plan: Continues to be in atrial fibrillation. Ventricular rate is better controlled. Would recommend up titrating beta-jim. She is normotensive now. For further rate control we may need to use digoxin. Renal function is normal. Echocardiogram showed preserved ejection fraction and no significant valve abno rmality In the present circumstance it is not possible to arrange for transesophageal echocardiogram and cardioversion for this patient. Furthermore in my discussion with the patient she is inclined on proceeding with a dental procedure which has been scheduled for this coming Tuesday. Thus anticoagulation will have to be interrupted and thus it is reasonable to only pursue rate control at the [facility]. This was discussed with the patient and she acknowledges and understands the situation. Once ventricular rate is better controlled hopefully patient can be discharged in the next 24 hours. I will arrange for outpatient follow-up
[2019-11-22] MEDS: ZOLPIDEM TARTRATE 5 MG TABLET PO PRN (22:43)
[2019-11-23] MEDS: DILTIAZEM HCL 60 MG TABLET PO SCH ×4 (01:42→17:27)
[2019-11-23] MEDS: METOCLOPRAMIDE HCL 10 MG TABLET PO PRN ×2 (06:52→14:45)
[2019-11-23] MEDS: METOPROLOL TARTRATE 50 MG TABLET PO SCH ×3 (06:52→21:21)
[2019-11-23] MEDS: BUSPIRONE HCL 10 MG TABLET PO SCH ×3 (06:54→21:20)
[2019-11-23] MEDS: DILTIAZEM HCL/D5W 125 MG/125 ML RTUINJ IV PRN (07:08)
[2019-11-23] MEDS ORDERED: LORAZEPAM 1 MG TABLET PO ONE (08:30)
[2019-11-23] MEDS: CITALOPRAM HYDROBROMIDE 20 MG TABLET PO SCH (09:18)
[2019-11-23] MEDS ORDERED: DIGOXIN INJ 0.5 MG/2 ML AMPULE IV ONE ×3 (10:00→20:00)
--- NOTE | 2019-11-23 12:14 | PDOC PROGRESS REPORT ---
Subjective Progress Note for:: 11/23/19 Subjective:: Patient heart rate is fine at rest however she noticed significant palpitations when she gets up to ambulate. Her heart rate seems to go up to the 150s upon ambulation. Otherwise patient endorses only mild nausea. Denies abdominal pain and feels well otherwise. Reason For Visit: AFIB WITH RVR Physical Exam Vital Signs: Temp Pulse Resp BP Pulse Ox 98.6 F 95 18 108/63 94 11/23/19 07:56 11/23/19 11:00 11/23/19 07:56 11/23/19 11:00 11/23/19 07:56 Intake & Output 11/22/19 11/23/19 11/24/19 06:59 06:59 06:59 Intake Total 1657 1265 178 Output Total 1400 950 Balance 257 315 178 Weight 70.2 kg 70 kg General appearance: PRESENT: no acute distress, cooperative Neck exam: ABSENT: JVD Respiratory exam: PRESENT: clear to auscultation berta, unlabored. ABSENT: tachypnea, wheezes Cardiovascular exam: PRESENT: irregular rhythm, +S1, +S2, tachycardia GI/Abdominal exam: PRESENT: soft. ABSENT: rebound, rigid, tenderness Neurological exam: PRESENT: alert, awake, oriented to person, oriented to place, oriented to time, oriented to situation Results Laboratory Results: 11/20/19 19:53 11/20/19 19:53 11/20/19 11/20/19 19:53 19:53 Creatine Kinase 59 CK-MB (CK-2) 1.11 Troponin I 0.014 NT-Pro-B Natriuret Pep 1290 H Impressions: Chest X-Ray 11/20/19 19:59 IMPRESSION: 1. Hyperexpanded appearance is nonspecific but can be seen in the setting of COPD. 2. Nodular appearing lesion projects over the right upper lobe. Findings are nonspecific and attention on follow-up is recommended. Assessment and Plan - Diagnosis (1) Paroxysmal atrial fibrillation with rapid ventricular response Is this a current diagnosis for this admission?: Yes Plan: Continue diltiazem 60 mg p.o. every 6 hours. Lopressor dose increased to 50 mg p.o. every 8 hours We will give some Ativan to see if we can help with patient's anxiety and ultimately help control patient's A. fib. Weaning off diltiazem drip. Will ambulate patient and if patient's heart rate bounces back into RVR on ambulation, I will start on digoxin load. Chadsvasc 2 --> Eliquis started but held in anticipation of patient's dental s urgery on Tuesday next week Echocardiogram is unremarkable with normal ejection fraction, no evidence of mitral valve prolapse. (2) Anxiety Is this a current diagnosis for this admission?: Yes Plan: Buspirone. Reassurance added Celexa. We will try some Ativan today.. (3) GERD (gastroesophageal reflux disease) Qualifiers: Esophagitis presence: esophagitis presence not specified Qualified Code(s): K21.9 - Gastro-esophageal reflux disease without esophagitis Is this a current diagnosis for this admission?: Yes Plan: Protonix while inpatient. (4) Nausea Is this a current diagnosis for this admission?: Yes Plan: Patient has chronic nausea since she had procedure for ischemic colitis a while back. Takes Zofran at home. Will give Zofran IV and Reglan as needed. - Time Time Spent with patient: Less than 15 minutes
[2019-11-23] MEDS ORDERED: DIGOXIN INJ 0.5 MG/2 ML AMPULE ONE (14:40)
[2019-11-23] MEDS ORDERED: DIGOXIN INJ 0.5 MG/2 ML AMPULE IV SCH ×2 (16:00→20:00)
[2019-11-23] MEDS: LORAZEPAM 1 MG TABLET PO PRN (17:28)
--- NOTE | 2019-11-23 19:24 | EKG REPORT ---
SEVERITY:- ABNORMAL ECG - SINUS RHYTHM PROBABLE LEFT ATRIAL ABNORMALITY LAD, CONSIDER LAFB OR INFERIOR INFARCT : Confirmed by: Fred Chadwick MD 23-Nov-2019 19:24:09
[2019-11-23] MEDS: DILTIAZEM HCL 120 MG CAP.SR.24H PO SCH (21:20)
[2019-11-23] MEDS: ZOLPIDEM TARTRATE 5 MG TABLET PO PRN (21:21)
[2019-11-24] MEDS: METOPROLOL TARTRATE 50 MG TABLET PO SCH (05:24)
[2019-11-24] MEDS: BUSPIRONE HCL 10 MG TABLET PO SCH (05:24)
[2019-11-24] MEDS: METOCLOPRAMIDE HCL 10 MG TABLET PO PRN (07:40)
[2019-11-24] MEDS: LORAZEPAM 1 MG TABLET PO PRN (07:41)
[2019-11-24] MEDS ORDERED: DIGOXIN 0.125 MG TABLET PO SCH (10:00)
[2019-11-24] MEDS: DILTIAZEM HCL 120 MG CAP.SR.24H PO SCH (10:24)
[2019-11-24] MEDS: ONDANSETRON HCL INJ/PF 4 MG/2 ML SDV IV PRN (10:24)
[2019-11-24] MEDS: CITALOPRAM HYDROBROMIDE 20 MG TABLET PO SCH (10:24)
--- NOTE | 2019-11-24 11:10 | PDOC DISCHARGE SUMMARY ---
Impression - Admit/DC Date/PCP Admission Date/Primary Care Provider: 11/22/19 11:56 ROBIN LABOY MD Discharge Date: 11/24/19 - Discharge Diagnosis (1) Anxiety Is this a current diagnosis for this admission?: Yes (2) Paroxysmal atrial fibrillation with rapid ventricular response Is this a current diagnosis for this admission?: Yes (3) GERD (gastroesophageal reflux disease) Is this a current diagnosis for this admission?: Yes (4) Nausea Is this a current diagnosis for this admission?: Yes - Additional Information Resuscitation Status: Full Code Referrals: REBECCA RAM [NO LOCAL MD] - Follow up as needed Prescriptions: Buspirone HCl [Buspar 10 mg Tablet] 5 mg PO Q8 #90 tablet Diltiazem HCl [Cardizem Cd 120 mg Capsule] 120 mg PO Q12 #60 cap.sr.24h Citalopram Hydrobromide [Celexa 20 mg Tablet] 20 mg PO DAILY #30 tablet Apixaban [Eliquis 5 mg Tablet] 5 mg PO BID #60 tablet Digoxin [Lanoxin 0.125 mg Tablet] 0.125 mg PO DAILY #30 tablet Metoprolol Tartrate [Lopressor 50 mg Tablet] 50 mg PO Q8 #90 tablet Home Medications: Zolpidem Tartrate [Ambien 10 mg Tablet] 10 mg PO HSP PRN 10/30/12 Cetirizine HCl [Zyrtec 10 mg Tablet] 10 mg PO DAILYP PRN 11/21/19 Ondansetron [Zofran Odt 4 mg Tablet] 4 mg PO Q4HP PRN 11/21/19 Pravastatin Sodium 20 mg PO QPM 11/21/19 Rabeprazole Sodium [Aciphex] 20 mg PO QPMP PRN 11/21/19 Apixaban [Eliquis 5 mg Tablet] 5 mg PO BID #60 tablet 11/24/19 Buspirone HCl [Buspar 10 mg Tablet] 5 mg PO Q8 #90 tablet 11/24/19 Citalopram Hydrobromide [Celexa 20 mg Tablet] 20 mg PO DAILY #30 tablet 11/24/19 Digoxin [Lanoxin 0.125 mg Tablet] 0.125 mg PO DAILY #30 tablet 11/24/19 Diltiazem HCl [Cardizem Cd 120 mg Capsule] 120 mg PO Q12 #60 cap.sr.24h 11/24/19 Metoprolol Tartrate [Lopressor 50 mg Tablet] 50 mg PO Q8 #90 tablet 11/24/19 History of Present Illiness History of Present Illness: Patient complains of: Palpitations History of Present Illness: TERRANCE CINTRON is a 69 year old female with a past medical history of mitral valve prolapse and intermittent tachycardia on atenolol. She presents with 12 hours of palpitations prompting evaluation in the emergency department. She is found to have sinus tachycardia in the 1 40-1 80 range, after adenosine 6 followed by 12 she was placed on IV Cardizem. And referred to the hospitalist for admis raymond. She adamantly denies recent change in medications, excessive caffeine, energy drinks, [id number] medications or abrupt medication withdrawal. She does admit to recent onset of panic attack first being 2 weeks ago prior to dental procedure. She admits to panic this morning concern for repeat dental procedure and ongoing public health concerns. She also has a history of thyroid nodules requiring drainage 2 years ago. After receiving continuous IV Cardizem followed by IV labetalol and Lopressor without significant improvement she receives IV Ativan greatly improving her heart rate into the 90s. She denies chest pain nausea vomiting, heat or cold intolerance. Hospital Course Hospital Course: (1) Paroxysmal atrial fibrillation with rapid ventricular response Continue diltiazem 120 mg every 12 hours. Lopressor dose increased to 50 mg p.o. every 8 hours Weaned off diltiazem drip. Patient was started on digoxin. Chadsvasc 2 --> Eliquis started but should be held in anticipation of patient's dental surgery on Tuesday next week. Patient is aware. Echocardiogram is unremarkable with normal ejection fraction, no evidence of mitral valve prolapse. Patient is currently in sinus rhythm. Can be discharged if okay with cardiology. (2) Anxiety Buspirone. Reassurance. added Celexa. (3) GERD (gastroesophageal reflux disease) (4) Nausea Patient has chronic nausea since she had procedure for ischemic colitis a while back. Takes Zofran at home. Physical Exam Vital Signs: Temp Pulse Resp BP Pulse Ox 98.5 F 78 16 124/68 93 11/24/19 07:39 11/24/19 07:39 11/24/19 07:39 11/24/19 07:39 11/24/19 07:39 Intake & Output 11/23/19 11/24/19 11/25/19 06:59 06:59 06:59 Intake Total 1265 1447 Output Total 950 300 Balance 315 1147 Weight 154 lb 5.177 oz 143 lb 4.807 oz General appearance: PRESENT: no acute distress, cooperative Head exam: PRESENT: atraumatic, normocephalic Eye exam: PRESENT: EOMI, PERRLA Ear exam: ABSENT: bleeding, drainage Neck exam: ABSENT: meningismus Respiratory exam: PRESENT: clear to auscultation berta. ABSENT: accessory muscle use Cardiovascular exam: PRESENT: RRR. ABSENT: diastolic murmur Pulses: PRESENT: normal carotid pulses, normal radial pulses GI/Abdominal exam: PRESENT: normal bowel sounds, soft. ABSENT: tenderness Neurological exam: PRESENT: alert, awake, oriented to person, oriented to place, oriented to time, oriented to situation Results Laboratory Results: WBC 9.3 10^3/uL (4.0-10.5) 11/20/19 19:53 RBC 4.61 10^6/uL (3.72-5.28) 11/20/19 19:53 Hgb 14.9 g/dL (12.0-15.5) 11/20/19 19:53 Hct 43.6 % (36.0-47.0) 11/20/19 19:53 MCV 95 fl (80-97) 11/20/19 19:53 MCH 32.2 pg (27.0-33.4) 11/20/19 19:53 MCHC 34.1 g/dL (32.0-36.0) 11/20/19 19:53 RDW 14.1 % (11.5-14.0) H 11/20/19 19:53 Plt Count 363 10^3/uL (150-450) 11/20/19 19:53 Lymph % (Auto) 34.4 % (13-45) 11/20/19 19:53 [place] % (Auto) 6.9 % (3-13) 11/20/19 19:53 Eos % (Auto) 1.4 % (0-6) 11/20/19 19:53 Baso % (Auto) 0.5 % (0-2) 11/20/19 19:53 Absolute Neuts (auto) 5.3 10^3/uL (1.7-8.2) 11/20/19 19:53 Absolute Lymphs (auto) 3.2 10^3/uL (0.5-4.7) 11/20/19 19:53 Absolute Monos (auto) 0.6 10^3/uL (0.1-1.4) 11/20/19 19:53 Absolute Eos (auto) 0.1 10^3/uL (0.0-0.6) 11/20/19 19:53 Absolute Basos (auto) 0.0 10^3/uL (0.0-0.2) 11/20/19 19:53 Seg Neutrophils % 56.8 % (42-78) 11/20/19 19:53 PT 12.7 SEC (11.4-15.4) 11/20/19 19:53 INR 0.95 11/20/19 19:53 Sodium 135.8 mmol/L (137-145) L 11/20/19 19:53 Potassium 4.1 mmol/L (3.6-5.0) 11/20/19 19:53 Chloride 98 mmol/L (98-107) 11/20/19 19:53 Carbon Dioxide 25 mmol/L (22-30) 11/20/19 19:53 Anion Gap 13 (5-19) 11/20/19 19:53 BUN 7 mg/dL (7-20) 11/20/19 19:53 Creatinine 0.72 mg/dL (0.52-1.25) 11/20/19 19:53 Est GFR ( Amer) > 60 (>60) 11/20/19 19:53 Est GFR (MDRD) Non-Af > 60 (>60) 11/20/19 19:53 Glucose 137 mg/dL (75-110) H 11/20/19 19:53 Calcium 10.1 mg/dL (8.4-10.2) 11/20/19 19:53 Magnesium 2.1 mg/dL (1.6-2.3) 11/20/19 19:53 Total Bilirubin 0.5 mg/dL (0.2-1.3) 11/20/19 19:53 Direct Bilirubin 0.2 mg/dL (0.0-0.4) 03/24/20 19:53 Neonat Total Bilirubin Not Reportable 11/20/19 19:53 Neonat Direct Bilirubin Not Reportable 11/20/19 19:53 Neonat Indirect Bili Not Reportable 11/20/19 19:53 AST 24 U/L (14-36) 11/20/19 19:53 ALT 16 U/L (<35) 11/20/19 19:53 Alkaline Phosphatase 79 U/L (38-126) 11/20/19 19:53 Creatine Kinase 59 U/L (30-135) 11/20/19 19:53 CK-MB (CK-2) 1.11 ng/mL (<4.55) 11/20/19 19:53 Troponin I 0.014 ng/mL 11/20/19 19:53 NT-Pro-B Natriuret Pep 1290 pg/mL (<125) H 11/20/19 19:53 Total Protein 8.0 g/dL (6.3-8.2) 11/20/19 19:53 Albumin 4.6 g/dL (3.5-5.0) 11/20/19 19:53 TSH 0.53 uIU/mL (0.47-4.68) 11/20/19 19:53 Free T4 1.08 ng/dL (0.78-2.19) 11/20/19 19:53 Free T3 pg/mL 5.24 pg/mL (2.77-5.27) 11/20/19 19:53 Urine Color STRAW 11/20/19 21:19 Urine Appearance CLEAR 11/20/19 21:19 Urine pH 7.0 (5.0-9.0) 11/20/19 21:19 Ur Specific [place] 1.004 11/20/19 21:19 Urine Protein NEGATIVE mg/dL (NEGATIVE) 11/20/19 21:19 Urine Glucose (UA) NEGATIVE mg/dL (NEGATIVE) 11/20/19 21:19 Urine Ketones 20 mg/dL (NEGATIVE) H 11/20/19 21:19 Urine Blood NEGATIVE (NEGATIVE) 11/20/19 21:19 Urine Nitrite NEGATIVE (NEGATIVE) 11/20/19 21:19 Urine Bilirubin NEGATIVE (NEGATIVE) 11/20/19 21:19 Urine Urobilinogen NEGATIVE mg/dL (<2.0) 11/20/19 21:19 Ur Leukocyte Esterase NEGATIVE (NEGATIVE) 11/20/19 21:19 Urine WBC (Auto) 1 /HPF 11/20/19 21:19 U Hyaline Cast (Auto) 1 /LPF 11/20/19 21:19 Squamous Epi Cells Auto <1 /HPF 11/20/19 21:19 Urine Mucus (Auto) RARE /LPF 11/20/19 21:19 Urine Ascorbic Acid NEGATIVE (NEGATIVE) 11/20/19 21:19 11/20/19 19:53 CK-MB (CK-2) 1.11 Troponin I 0.014 NT-Pro-B Natriuret Pep 1290 H Impressions: Chest X-Ray 11/20/19 19:59 IMPRESSION: 1. Hyperexpanded appearance is nonspecific but can be seen in the setting of COPD. 2. Nodular appearing lesion projects over the right upper lobe. Findings are nonspecific and attention on follow-up is recommended. Plan Time Spent: Greater than 30 Minutes - 35 minutes Stroke Is this a Stroke Patient?: No Acute Heart Failure - Is this a Heart Failure Patient?: No
[2019-11-24 11:22] VITALS: BP 132/74
== END 2019-11-24 11:59 | disposition home or self-care (01) | DRG 310 ==
LOC: ER 19:38 → EH 21:25 → INTOOBSV 21:25 → 3W 23:49 → OBSVTOIN 11-22 11:56
PROVIDERS: ADMIT Internal Medicine; ATTEND Internal Medicine
DX: I48.0 Paroxysmal atrial fibrillation (principal); E05.90 Thyrotoxicosis, unspecified without thyrotoxic crisis or storm; K21.9 Gastro-esophageal reflux disease without esophagitis; R11.0 Nausea; E78.5 Hyperlipidemia, unspecified; I10 Essential (primary) hypertension; F32.9 Major depressive disorder, single episode, unspecified; F41.1 Generalized anxiety disorder; F41.0 Panic disorder [episodic paroxysmal anxiety]; Z79.01 Long term (current) use of anticoagulants; Z79.899 Other long term (current) drug therapy; Z87.891 Personal history of nicotine dependence; Z82.49 Family history of ischemic heart disease and other diseases of the circulatory system; Z84.89 Family history of other specified conditions
CPT/HCPCS: 36415; 71045; 80053; 81001; 82550; 82553; 83735; 83880; 84439; 84443; 84481; 84484; 85025; 85610; 93005; 93010; 93306; 96365; 96375; 96376; 99291; 99292; G0378; J0153; J1160; J1644; J2060; J2405; J3490; J7030